=== PATIENT | female | born 1935 | race Caucasian/White ===

== ENCOUNTER → 2017-08-15 | Outpatient (CLI) | payer MEDICARE, BC ==
--- NOTE | 2017-08-15 09:09 | BD ---
EXAMINATION TYPE: MG DEXA axial skeleton. DATE OF EXAM: 08/15/2017 COMPARISON: 06.03.2015 CLINICAL HISTORY: 82 YR OLD FEMALE....ICD-10 CODE: Z78.0 POST MENOPAUSAL Height: 66.5 Weight: 196 FRAX RISK QUESTIONS: Alcohol (3 or more units per day): NO Family History (Parent hip fracture): NO FX Glucocorticoids (More than 3mos): NO (Ex: prednisone, prednisolone, methylprednisolone, dexamethasone, and hydrocortisone). History of Fracture in Adulthood: NO Secondary Osteoporosis: NO 1. Type 1 Diabetes: O 2. Hyperthyroidism: NO 3. Menopause before 45: NO 4. Malnutrition: NO 5. Chronic liver disease: NO Rheumatoid Arthritis: NO Current Tobacco Use: NO RISK FACTORS HISTORY OF: Family History of Osteoporosis: YES, ALL IMMEDIATE...NO FX HIPS Active: YES Diet low in dairy products/other sources of calcium: NO Postmenopausal woman: YES AT 49 YRS. Lost more than 2 inches in height since high school: YES Hyperparathyroidism: NO Adrenal Insufficiency: NO MEDICATIONS: Osteoporosis Medications: FOSAMAX IN PAST...STOPPED 3 YRS AGO Additional Medications: NO MEDS AT THIS POINT....NO SUPPLEMENTS, EXCEPT RETNOVITES FOR HER EYES Additional History: NOTHING TO NOTE EXAM MEASUREMENTS: Bone mineral densitometry was performed using the [employer] System. Bone mineral density as measured about the Lumbar spine is: ----- L1-L4(G/cm2): 1.343 T Score Values are as follows: ----- L1: 1.1 ----- L2: 2.6 ----- L3: 1.0 ----- L4: 0.8 ----- L1-L4: 1.4 Bone mineral density has: Increased 5.5% since study of: 06.03.2015 Bone mineral density about the R hip (g/cm2): 0.888 Bone mineral density about the L hip (g/cm2): 0.934 T Score values are as follows: -----R Neck: -1.4 -----L Neck: -1.2 -----R Total: -0.9 -----L Total: -0.6 Bone mineral density has: Decreased -2.1% since study of: 06.03.2015 FRAX: THERE IS A 12.6% CHANCE OF A MAJOR OSTEOPOROTIC FX AND A 3.1% FOR A HIP FX.....PROBABILITY O F FX IN 10 YRS TIME IMPRESSION: Osteopenia (T Score between -2.5 and -1 as noted by T score values persists in both hips. There holly ins slightly increased risk of fracture and the patient may be considered for treatment. Re-Screen 2-5 years. NOTE: T-SCORE=SD OF THE YOUNG ADULT MEAN.
--- NOTE | 2017-08-16 07:55 | MM ---
Reason for exam: screening (asymptomatic). Last mammogram was performed 1 year and 2 months ago. History: Patient is postmenopausal and is nulliparous. Physical Findings: A clinical breast exam by your physician is recommended on an annual basis and results should be correlated with mammographic findings. MG 3D Screening Mammo W/Cad Bilateral CC and MLO view(s) were taken. Prior study comparison: June 29, 2016, bilateral MG 3d screening mammo w/cad. June 03, 2015, bilateral MG screening mammo w CAD. The breast tissue is heterogeneously dense. This may lower the sensitivity of mammography. Stable benign calcifications. There is no discrete abnormality. No significant changes when compared with prior studies. ASSESSMENT: Benign, BI-RAD 2 RECOMMENDATION: Routine screening mammogram of both breasts in 1 year.
== END | disposition home or self-care (01) ==
LOC: RADMAMWWP 07:28
PROVIDERS: ATTEND Family Medicine
DX: Z12.31 Encounter for screening mammogram for malignant neoplasm of breast (principal); M85.851 Other specified disorders of bone density and structure, right thigh; M85.852 Other specified disorders of bone density and structure, left thigh; Z78.0 Asymptomatic menopausal state
CPT/HCPCS: 77063; 77067; 77080

== ENCOUNTER → 2019-03-28 | Outpatient (CLI) | payer MEDICARE, BC ==
--- NOTE | 2019-03-29 08:40 | MM ---
Reason for exam: screening (asymptomatic). Last mammogram was performed 1 year and 7 months ago. History: Patient is postmenopausal and is nulliparous. Physical Findings: A clinical breast exam by your physician is recommended on an annual basis and results should be correlated with mammographic findings. MG 3D Screening Mammo W/Cad Bilateral CC, MLO, and XCCL view(s) were taken. Prior study comparison: August 15, 2017, bilateral MG 3d screening mammo w/cad. June 29, 2016, bilateral MG 3d screening mammo w/cad. The breast tissue is heterogeneously dense. This may lower the sensitivity of mammography. Stable benign calcifications. There is no discrete abnormality. No significant changes when compared with prior studies. ASSESSMENT: Benign, BI-RAD 2 RECOMMENDATION: Routine screening mammogram of both breasts in 1 year.
== END | disposition home or self-care (01) ==
LOC: RADMAMWWP 07:32
PROVIDERS: ATTEND Family Medicine
DX: Z12.31 Encounter for screening mammogram for malignant neoplasm of breast (principal)
CPT/HCPCS: 77063; 77067

== ENCOUNTER 2020-12-08 09:55 | Observation (INO) | payer MEDICARE, BC ==
[2020-12-08] MEDS ORDERED: SODIUM CHLORIDE 0.9% 1,000 ML IV STA (10:18)
[2020-12-08 10:25] LABS: Basophils # (A) 0.1 k/uL (0-0.2); Basophils % (A) 1 %; Eosinophils # (A) 0.3 k/uL (0-0.7); Eosinophils % (A) 4 %; HCT 42.1 % (34.0-46.0); Lymphocytes # (A) 1.3 k/uL (1.0-4.8); Lymphocytes % (A) 18 %; MCHC 33.3 g/dL (31.0-37.0); MCV 96.1 fL (80.0-100.0); Monocytes # (A) 0.5 k/uL (0-1.0); Monocytes % (A) 7 %; Neutrophils # (A) 4.9 k/uL (1.3-7.7); Neutrophils % (A) 67 %; Platelet Count 160 k/uL (150-450); RBC 4.38 m/uL (3.80-5.40); RDW 13.8 % (11.5-15.5); WBC 7.3 k/uL (3.8-10.6)
--- NOTE | 2020-12-08 10:25 | ED ---
Arrhythmia/Palpitations HPI - General Chief Complaint: Arrhythmia/Palpitations Stated Complaint: Palpitations,Headache Time Seen by Provider: 12/08/20 09:55 Source: patient, EMS, RN notes reviewed Mode of arrival: EMS - History of Present Illness Initial Comments: This 85-year-old female history of aortic stenosis who presents with multiple complaints including headache which she believes is secondary to her degenerative neck disease also complains of palpitations with a chest pains started this morning. Currently she has no chest pain feels no palpitations MD Complaint: palpitations - Related Data Home Medications Medication Instructions Recorded Confirmed Acetaminophen Tab [Tylenol] 325 mg PO Q6H PRN 12/08/20 12/08/20 Aspirin EC [Ecotrin Low Dose] 81 mg PO DAILY 12/08/20 12/08/20 Meclizine [Antivert] 25 mg PO TID PRN 12/08/20 12/08/20 Multivit-Min/FA/Lycopen/Lutein 1 tab PO DAILY 12/08/20 12/08/20 [Centrum Silver Tablet] Prevagen 1 cap PO DAILY 12/08/20 12/08/20 Retinavites 2 1 tab PO BID 12/08/20 12/08/20 Slow Release Calcium/Vitamin D3 1 tab PO DAILY 12/08/20 12/08/20 1200mg/1000iu Vit C/E/Zn/Coppr/Lutein/Zeaxan 1 cap PO BID 12/08/20 12/08/20 [Preservision Areds 2 Softgel] Allergies Allergy/AdvReac Type Severity Reaction Status Date / Time diazepam [From Valium] Allergy Confusion Verified 12/08/20 11:00 Penicillins Allergy Rash/Hives Verified 12/08/20 11:00 Tetracyclines Allergy Rash/Hives Verified 12/08/20 11:00 Review of Systems ROS Statement: Those systems with pertinent positive or pertinent negative responses have been documented in the HPI. ROS Other: All systems not noted in ROS Statement are negative. Past Medical History Past Medical History: GERD/Reflux Additional Past Medical History / Comment(s): christina martinez stnosis History of Any Multi-Drug Resistant Organisms: None Reported Past Surgical History: No Surgical Hx Reported Past Psychological History: No Psychological Hx Reported Smoking Status: Former smoker Past Alcohol Use History: Daily Past Drug Use History: None Reported General Exam - General Exam Comments Initial Comments: This is a well-developed asthenic appearing female who is awake alert oriented 3 General appearance: alert, anxious Head exam: Present: atraumatic, normocephalic, normal inspection Eye exam: Present: normal appearance, PERRL, EOMI. Absent: scleral icterus, conjunctival injection, periorbital swelling ENT exam: Present: mucous membranes dry Neck exam: Present: normal inspection. Absent: tenderness, meningismus, lymphadenopathy Respiratory exam: Present: normal lung sounds bilaterally. Absent: respiratory distress, wheezes, rales, rhonchi, stridor, chest wall tenderness Cardiovascular Exam: Present: regular rate, normal rhythm, normal heart sounds. Absent: systolic murmur, diastolic murmur, rubs, gallop, clicks GI/Abdominal exam: Present: soft, normal bowel sounds. Absent: distended, tenderness, guarding, rebound, rigid Extremities exam: Present: normal inspection, full ROM, normal capillary refill. Absent: tenderness, pedal edema, joint swelling, calf tenderness Back exam: Present: normal inspection Neurological exam: Present: alert, oriented X3, CN II-XII intact Psychiatric exam: Present: normal affect, normal mood Skin exam: Present: warm, dry, intact, normal color. Absent: rash Course Vital Signs 12/08/20 09:58 Temperature 98.3 F Pulse Rate 61 Respiratory 18 Rate Blood Pressure 132/85 O2 Sat by Pulse 95 Oximetry EKG Findings - EKG Results: EKG: interpreted by ERMD (Sinus tachycardia PVCs rate 114 OK interval 192 QRS 88 QT/QTC 338/[address]-T wave configuration) Medical Decision Making - Medical Decision Making I did discuss findings with patient family and with Dr. vásquez patient did have elevated d-dimer CAT scan is pending. Evidence of mild CHF atypical chest pain and UTI - Lab Data Result diagrams: 12/08/20 10:16 12/08/20 10:16 Lab Results 12/08/20 12/08/20 12/08/20 Range/Units 10:16 10:16 10:16 WBC 7.3 (3.8-10.6) k/uL RBC 4.38 (3.80-5.40) m/uL Hgb 14.0 (11.4-16.0) gm/dL Hct 42.1 (34.0-46.0) % MCV 96.1 (80.0-100.0) fL MCH 32.0 (25.0-35.0) pg MCHC 33.3 (31.0-37.0) g/dL RDW 13.8 (11.5-15.5) % Plt Count 160 (150-450) k/uL MPV 9.0 Neutrophils % 67 % Lymphocytes % 18 % Monocytes % 7 % Eosinophils % 4 % Basophils % 1 % Neutrophils # 4.9 (1.3-7.7) k/uL Lymphocytes # 1.3 (1.0-4.8) k/uL Monocytes # 0.5 (0-1.0) k/uL Eosinophils # 0.3 (0-0.7) k/uL Basophils # 0.1 (0-0.2) k/uL PT (9.0-12.0) sec INR (<1.2) APTT (22.0-30.0) sec D-Dimer (<0.60) mg/L FEU Sodium 138 (137-145) mmol/L Potassium 4.3 (3.5-5.1) mmol/L Chloride 107 (98-107) mmol/L Carbon Dioxide 22 (22-30) mmol/L Anion Gap 9 mmol/L BUN 10 (7-17) mg/dL Creatinine 0.77 (0.52-1.04) mg/dL Est GFR (CKD-EPI)AfAm 80 (>60 ml/min/1.73 sqM) Est GFR (CKD-EPI)NonAf 70 (>60 ml/min/1.73 sqM) Glucose 129 H (74-99) mg/dL Calcium 9.0 (8.4-10.2) mg/dL Magnesium 2.0 (1.6-2.3) mg/dL Total Bilirubin 1.1 (0.2-1.3) mg/dL AST 24 (14-36) U/L ALT 11 (4-34) U/L Alkaline Phosphatase 92 (38-126) U/L Creatine Kinase 32 (30-135) U/L Troponin I <0.012 (0.000-0.034) ng/mL NT-Pro-B Natriuret Pep pg/mL Total Protein 7.0 (6.3-8.2) g/dL Albumin 4.0 (3.5-5.0) g/dL Lipase 23 (23-300) U/L Urine Color Urine Appearance (Clear) Urine pH (5.0-8.0) Ur Specific [place] (1.001-1.035) Urine Protein (Negative) Urine Glucose (UA) (Negative) Urine Ketones (Negative) Urine Blood (Negative) Urine Nitrite (Negative) Urine Bilirubin (Negative) Urine Urobilinogen (<2.0) mg/dL Ur Leukocyte Esterase (Negative) Urine RBC (0-5) /hpf Urine WBC (0-5) /hpf Ur Squamous Epith Cells (0-4) /hpf Urine Bacteria (None) /hpf Urine Mucus (None) /hpf 12/08/20 12/08/20 12/08/20 Range/Units 10:16 10:49 12:19 WBC (3.8-10.6) k/uL RBC (3.80-5.40) m/uL Hgb (11.4-16.0) gm/dL Hct (34.0-46.0) % MCV (80.0-100.0) fL MCH (25.0-35.0) pg MCHC (31.0-37.0) g/dL RDW (11.5-15.5) % Plt Count (150-450) k/uL MPV Neutrophils % % Lymphocytes % % Monocytes % % Eosinophils % % Basophils % % Neutrophils # (1.3-7.7) k/uL Lymphocytes # (1.0-4.8) k/uL Monocytes # (0-1.0) k/uL Eosinophils # (0-0.7) k/uL Basophils # (0-0.2) k/uL PT 10.7 (9.0-12.0) sec INR 1.0 (<1.2) APTT 20.9 L (22.0-30.0) sec D-Dimer 0.95 H (<0.60) mg/L FEU Sodium (137-145) mmol/L Potassium (3.5-5.1) mmol/L Chloride (98-107) mmol/L Carbon Dioxide (22-30) mmol/L Anion Gap mmol/L BUN (7-17) mg/dL Creatinine (0.52-1.04) mg/dL Est GFR (CKD-EPI)AfAm (>60 ml/min/1.73 sqM) Est GFR (CKD-EPI)NonAf (>60 ml/min/1.73 sqM) Glucose (74-99) mg/dL Calcium (8.4-10.2) mg/dL Magnesium (1.6-2.3) mg/dL Total Bilirubin (0.2-1.3) mg/dL AST (14-36) U/L ALT (4-34) U/L Alkaline Phosphatase (38-126) U/L Creatine Kinase (30-135) U/L Troponin I (0.000-0.034) ng/mL NT-Pro-B Natriuret Pep 947 pg/mL Total Protein (6.3-8.2) g/dL Albumin (3.5-5.0) g/dL Lipase (23-300) U/L Urine Color Light Yellow Urine Appearance Clear (Clear) Urine pH 5.5 (5.0-8.0) Ur Specific [place] 1.004 (1.001-1.035) Urine Protein Negative (Negative) Urine Glucose (UA) Negative (Negative) Urine Ketones 1+ H (Negative) Urine Blood Negative (Negative) Urine Nitrite Positive H (Negative) Urine Bilirubin Negative (Negative) Urine Urobilinogen <2.0 (<2.0) mg/dL Ur Leukocyte Esterase Large H (Negative) Urine RBC 1 (0-5) /hpf Urine WBC 60 H (0-5) /hpf Ur Squamous Epith Cells <1 (0-4) /hpf Urine Bacteria Many H (None) /hpf Urine Mucus Rare H (None) /hpf - Radiology Data Radiology results: report reviewed (Initial imaging reviewed increase markings noted CHF considered), image reviewed Disposition Clinical Impression: Atypical chest pain, CHF (congestive heart failure), Urinary tract infection, PVCs (premature ventricular contractions) Disposition: ADMITTED IP TO THIS [facility] Condition: Fair Referrals: Anuj Vigil MD [Primary Care Provider] - 1-2 days
[2020-12-08 10:33] LABS: Potassium 4.3 mmol/L (3.5-5.1); Total Bilirubin 1.1 mg/dL (0.2-1.3)
--- NOTE | 2020-12-08 11:02 | XR ---
EXAMINATION TYPE: XR chest 2V DATE OF EXAM: 12/08/2020 COMPARISON: Chest x-ray dated 04/08/2011 HISTORY: Chest pain TECHNIQUE: Frontal and lateral views of the chest are obtained. FINDINGS: Mitral annular calcification is suspected. Wedge compression deformity is noted near the t horacic lumbar junction, loss of height of greater than 75% is noted anteriorly, there may be some mi ld retropulsion. Interstitium and central vascularity are increased. Aorta is dense. Heart size withi n normal limits. No evident pneumothorax. No sizable effusion, difficult to exclude minimal blunting of the costophrenic angles, minimal fluid. IMPRESSION: Correlate for congestive heart failure.
[2020-12-08 11:17] LABS: Appearance,Urine Clear (Clear); Bacteria,Urine Many /hpf; Bilirubin,Urine Negative (Negative); Blood,Urine Negative (Negative); Color,Urine Light Yellow; Glucose,Urine (UA) Negative (Negative); Ketones,Urine 1+ (Negative); Leukocyte Esterase,Urine Large (Negative); Mucus,Urine Rare /hpf; Nitrite,Urine Positive (Negative); PH, Urine 5.5 (5.0-8.0); Protein,Urine Negative (Negative); RBC,Urine 1 /hpf (0-5); Specific Gravity,Urine 1.004 (1.001-1.035); Squamous Epithelial Cell,Urine <1 /hpf (0-4); Urobilinogen,Urine <2.0 mg/dL (<2.0); WBC,Urine 60 /hpf (0-5)
[2020-12-08 12:50] LABS: Prothrombin Time 10.7 sec (9.0-12.0)
[2020-12-08 12:55] LABS: D-Dimer 0.95 mg/L FEU (<0.60); Partial Thromboplastin Time 20.9 sec (22.0-30.0)
[2020-12-08] MEDS ORDERED: cefTRIAXone IN SWFI 1,000 MG/10 ML SYRINGE IVP STA (13:07)
[2020-12-08] MEDS ORDERED: ACETAMINOPHEN TAB 325 MG TAB PO PRN (14:31)
[2020-12-08] MEDS ORDERED: MECLIZINE 25 MG TAB PO PRN (14:31)
[2020-12-08] MEDS ORDERED: NITROGLYCERIN SL TABS 0.4 MG TAB SUBLINGUAL PRN (14:56)
[2020-12-08] MEDS: SODIUM CHLORIDE 0.9% 1,000 ML IV SCH (15:38)
--- NOTE | 2020-12-08 15:46 | CT ---
EXAMINATION TYPE: CT angio chest DATE OF EXAM: 12/08/2020 2:14 PM COMPARISON: Same day chest radiograph. Chest radiograph 04/08/2011. HISTORY: PE suspected, intermediate probability. Positive d-dimer. CT DLP: 315.8 mGycm Automated exposure control for dose reduction was used. CONTRAST: CTA scan of the thorax is performed with IV Contrast, patient injected with 67 mL of Isovue 300, pulm onary embolism protocol. . FINDINGS: LUNGS: Tracheobronchial tree is patent. No focal airspace opacity. There are small bilateral pleural effusions. There is interlobular septal thickening. No pneumothorax. MEDIASTINUM: There is satisfactory enhancement of the pulmonary artery and its branches, there is no CT evidence for pulmonary embolism. Dilatation of the main pulmonary tibial trunk. There are no great er than 1 cm hilar or mediastinal lymph nodes. No pericardial effusion is seen. Cardiac size normal . Prominence of the left atrium. Calcified coronary artery disease and mitral annular calcification. OTHER: Age-indeterminate vertebra plana compression deformity of what is likely T11. Heterogenous no dular appearance of the left thyroid. IMPRESSION: 1. No evidence of pulmonary embolism. 2. Small bilateral pleural effusions and pulmonary vascular congestion and findings may represent CH F. 3. Prominence of the left atrium and mitral annular calcifications. Recommend correlation with cardi ac echo. 4. Dilatation of the main pulmonary arterial trunk may represent pulmonary arterial hypertension. 5. Age-indeterminate vertebral plana compression deformity of T11. 6. Heterogenous enlarged left thyroid. Recommend nonemergent outpatient thyroid ultrasound follow-up as clinically indicated.
--- NOTE | 2020-12-08 18:44 | US ---
EXAMINATION TYPE: US venous doppler duplex LE BI DATE OF EXAM: 12/08/2020 4:23 PM COMPARISON: NONE CLINICAL HISTORY: Rule out DVT. SIDE PERFORMED: Bilateral TECHNIQUE: The lower extremity deep venous system is examined utilizing real time linear array sonog faisal with graded compression, doppler sonography and color-flow sonography. VESSELS IMAGED: Common Femoral Vein Deep Femoral Vein Greater Saphenous Vein * Femoral Vein Popliteal Vein Small Saphenous Vein * Proximal Calf Veins (* superficial vessels) Right Leg: no evidence of acute DVT as visualized Left Leg: no evidence of acute DVT as visualized IMPRESSION: No evidence of deep vein thrombosis in the right and left leg.
[2020-12-08] MEDS: HEPARIN SODIUM,PORCINE/PF 5,000 UNIT/0.5 ML SYRINGE SQ SCH (21:25)
[2020-12-08] MEDS: FAMOTIDINE 20 MG/2 ML VIAL IV SCH (21:25)
[2020-12-08] MEDS: FUROSEMIDE 10 MG/ML 4 ML VIAL IV SCH (21:39)
--- NOTE | 2020-12-08 22:52 | P.HPIM ---
History of Present Illness This is a pleasant 85 years old female with past medical history of GERD, aortic stenosis and vertigo. Presents emergency room because of feeling irregular heartbeat and headache as per ED team. When I asked the patient she states she came because of severe headache which is completely resolved now. Patient did not feel well but she didn't have any specific symptoms other than severe headache which is resolved as above. She denies chest pain or dyspnea. She has some discomfort in her belly, in the middle of her belly for the last 2 days but now is gone. she states that she has a normal bowel movement. She denies any urinary complaints. Patient states that she has not been drinking well for the last 2 days because she does not like water, visually she drinks a lot of coffee but because she could not feel well to her stomach she wasn't drinking much of coffee or water, because she thought her symptoms are due to GERD so she limited her amount of intake. No dizziness, no syncope/presyncope. No falling She denies weakness, numbness, no blurred vision or slurred speech Vitals are stable. Labs include an unremarkable CBC, BMP, liver enzymes. This is normal at 23. And is negative less than 0.012. Urinalysis is suspicious of infection D-dimer is elevated at 0.95. Chest x-ray: Correlate for CHF In the emergency room patient received ceftriaxone and 1 L of normal saline Review of Systems CONSTITUTIONAL: No fever, no malaise, no fatigue. HEENT: No recent visual problems or hearing problems. Denied any sore throat. CARDIOVASCULAR: No orthopnea, PND, no palpitations, no syncope. PULMONARY: No shortness of breath, no cough, no hemoptysis. GASTROINTESTINAL: No diarrhea, no nausea, no vomiting, no abdominal pain. Normoactive bowel sounds. NEUROLOGICAL: No headaches, no weakness, no numbness. HEMATOLOGICAL: Denies any bleeding or petechiae. GENITOURINARY: Denies any burning micturition, frequency, or urgency. MUSCULOSKELETAL/RHEUMATOLOGICAL: Denies any joint pain, swelling, or any muscle pain. ENDOCRINE: Denies any polyuria or polydipsia. Past Medical History Past Medical History: GERD/Reflux Additional Past Medical History / Comment(s): virtigo, arotic stnosis History of Any Multi-Drug Resistant Organisms: None Reported Past Surgical History: No Surgical Hx Reported Past Psychological History: No Psychological Hx Reported Smoking Status: Former smoker Past Alcohol Use History: Daily Past Drug Use History: None Reported - Past Family History Mother Family Medical History: No Reported History Father Family Medical History: AICD/Pacemaker Medications and Allergies Home Medications Medication Instructions Recorded Confirmed Type Acetaminophen Tab [Tylenol] 325 mg PO Q6H PRN 12/08/20 12/08/20 History Aspirin EC [Ecotrin Low Dose] 81 mg PO DAILY 12/08/20 12/08/20 History Meclizine [Antivert] 25 mg PO TID PRN 12/08/20 12/08/20 History Multivit-Min/FA/Lycopen/Lutein 1 tab PO DAILY 12/08/20 12/08/20 History [Centrum Silver Tablet] Prevagen 1 cap PO DAILY 12/08/20 12/08/20 History Retinavites 2 1 tab PO BID 12/08/20 12/08/20 History Slow Release Calcium/Vitamin D3 1 tab PO DAILY 12/08/20 12/08/20 History 1200mg/1000iu Vit C/E/Zn/Coppr/Lutein/Zeaxan 1 cap PO BID 12/08/20 12/08/20 History [Preservision Areds 2 Softgel] Allergies Allergy/AdvReac Type Severity Reaction Status Date / Time diazepam [From Valium] Allergy Confusion Verified 12/08/20 11:00 Penicillins Allergy Rash/Hives Verified 12/08/20 11:00 Tetracyclines Allergy Rash/Hives Verified 12/08/20 11:00 Physical Exam Vitals: Vital Signs Temp Pulse Resp BP Pulse Ox 12/08/20 09:58 98.3 F 61 18 132/85 95 Intake and Output 12/07/20 12/08/20 12/08/20 22:59 06:59 14:59 Other: Weight 80.739 kg GENERAL: The patient is alert and oriented x3, not in any acute distress. Well developed, well nourished. HEENT: Pupils are round and equally reacting to light. EOMI. No scleral icterus. No conjunctival pallor. Normocephalic, atraumatic. No pharyngeal erythema. No th yromegaly. CARDIOVASCULAR: S1 and S2 present. No murmurs, rubs, or gallops. PULMONARY: Chest is clear to auscultation, no wheezing or crackles. ABDOMEN: Soft, nontender, nondistended, normoactive bowel sounds. No palpable organomegaly. MUSCULOSKELETAL: No joint swelling or deformity. EXTREMITIES: No cyanosis, clubbing, or pedal edema. NEUROLOGICAL: Gross neurological examination did not reveal any focal deficits. SKIN: No rashes. No petechiae Results CBC & Chem 7: 12/08/20 10:16 12/08/20 10:16 Labs: Abnormal Lab Results - Last 24 Hours (Table) 12/08/20 12/08/20 12/08/20 Range/Units 10:16 10:49 12:19 APTT 20.9 L (22.0-30.0) sec D-Dimer 0.95 H (<0.60) mg/L FEU Glucose 129 H (74-99) mg/dL Urine Ketones 1+ H (Negative) Urine Nitrite Positive H (Negative) Ur Leukocyte Esterase Large H (Negative) Urine WBC 60 H (0-5) /hpf Urine Bacteria Many H (None) /hpf Urine Mucus Rare H (None) /hpf Assessment and Plan Assessment: -Possible acute CHF, check echocardiogram, consult cardiology team. Continue with fluid restriction for now -Possible urinary tract infection, however patient denies any urinary symptoms. Follow-up urine culture -Elevated d-dimer, CTA of the chest was ordered follow-up the results. Also will order Doppler of the lower extremities -History of aortic stenosis -History of vertigo -History of GERD Plan: This is a pleasant 85 years old female who presents with chest pain, possible CHF and possible UTI. follow-up urine culture. Check echocardiogram and Doppler of the lower extremity. Consult cardiology service Follow-up The CTA of the chest . Also we will order the ultrasound of the legs Labs and medication were reviewed.. Continue same treatment. Continue with symptomatic treatment. Resume home medication. Monitor lytes and vitals. DVT and GI prophylaxis. Further recommendations depends on the clinical course of the patient DVT prophylaxis: Subcutaneous heparin GI Prophylaxis: Pepcid PT/OT: Pending Prognosis is guarded Dr. Vigil will resume the care of the patient tomorrow
[2020-12-09] MEDS: ASPIRIN 81 MG PO SCH (08:54)
[2020-12-09] MEDS: FUROSEMIDE 10 MG/ML 4 ML VIAL IV SCH (08:54)
[2020-12-09] MEDS: FAMOTIDINE 20 MG/2 ML VIAL IV SCH (08:54)
[2020-12-09] MEDS: HEPARIN SODIUM,PORCINE/PF 5,000 UNIT/0.5 ML SYRINGE SQ SCH ×2 (08:55→21:56)
[2020-12-09] MEDS ORDERED: ASPIRIN 325 MG TAB PO SCH (09:00)
[2020-12-09] MEDS ORDERED: ASPIRIN 81 MG PO SCH (09:00)
[2020-12-09] MEDS: METOPROLOL SUCCINATE (ER) 25 MG TAB.ER.24H PO SCH (10:43)
[2020-12-09 10:51] LABS: Chol/HDL Ratio 2.84; LDL Cholesterol,Calculated 91.8 mg/dL (0.0-131.0); VLDL Calculation 15.2 mg/dL (5.00-40.00)
--- NOTE | 2020-12-09 11:28 | P.CRDCN ---
History of Present Illness History of present illness: HISTORY OF PRESENTING ILLNESS This is a pleasant 85-year-old female past medical history significant for GERD, vertigo, aortic stenosis and daily alcohol use. She follows in the ffice with Dr. Graves. We have been asked to see in consultation for heart failure. Who presented to the hospital yesterday after a 2 day history of feeling tired, abdominal fullness, frequent passing of gas and poor appetite. Overall she just states she did not feel good. She has no specific complaints of chest pain or shortness of breath. She is not dizzy and has no palpitations. She is seen and examined resting comfortably in no acute distress. She continues to feel abdominal fullness. She states the last time she saw Dr. Graves in the office was last year in April where she had an echocardiogram performed revealing severe aortic stenosis. Since that time she has been extremely anxious about the idea of having to have surgical intervention. She has not been back to the office since. On admission she was initiated on IV diuretics secondary to chest x-ray showing heart failure. She has been up urinating and has put out a total of 2.7 L of urine since admission. DIAGNOSTICS EKG reveals sinus mechanism with PVCs. Telemetry tracings indicate sinus mechanism. Chest xray indicates evidence of heart failure. CTA is negative for PE with evidence of heart failure. Lower extremity Doppler negative for DVT bilaterally. Laboratory reviewed, CBC unremarkable, d-dimer 0.95, cardiac enzymes negative 3, and T proBNP 947, sodium 138, potassium 4.3, creatinine 0.77 and magnesium 2.0. Current cardiac medications include aspirin 81 mg daily. REVIEW OF SYSTEMS At the time of my exam: CONSTITUTIONAL: Denies fever or chills. CARDIOVASCULAR: Denies chest pain, shortness of breath, orthopnea, PND or palpitations. RESPIRATORY: Denies cough. GASTROINTESTINAL: Denies abdominal pain, diarrhea, constipation, nausea or vomiting. MUSCULOSKELETAL: Denies myalgias. NEUROLOGIC: Denies numbness, tingling, headacbe or weakness. ENDOCRINE: Denies fatigue, weight change, polydipsia or polyurina. GENITOURINARY: Denies burning, hematuria or urgency with micturation. HEMATOLOGIC: Denies history of anemia or bleeding. PHYSICAL EXAMINATION Blood pressure 133/78 heart rate 109 afebrile and maintaining oxygen saturation on room air. CONSTITUTIONAL: No apparent distress. HEENT: Head is normocephalic. Pupils are equal, round. Sclerae anicteric. Mucous membranes of the mouth are moist. No JVD. No carotid bruit. CHEST EXAMINATION: Lungs are clear to auscultation. No chest wall tenderness is noted on palpation or with deep breathing. HEART EXAMINATION: Regular rate and rhythm. S1, S2 heard. Systolic ejection murmur at the base, no gallops or rub. ABDOMEN: Soft, nontender. Positive bowel sounds. EXTREMITIES: 2+ peripheral pulses, no lower extremity edema and no calf tenderness. NEUROLOGIC EXAMINATION: Patient is awake, alert and oriented x3. ASSESSMENT Acute diastolic heart failure secondary to aortic stenosis Aortic stenosis, severe PLAN Decrease aspirin to 81 mg daily. Echocardiogram has been ordered and will be reviewed. Continue diuresis for another 24 hours. Document accurate intake and output along with daily weights. Follow renal function and electrolytes in the morning. Further recommendations to follow based on clinical course. Thank you kindly for this consultation. Nurse Practitioner note has been reviewed, I agree with a documented findings and plan of care. Patient was seen and examined. Past Medical History Past Medical History: GERD/Reflux Additional Past Medical History / Comment(s): virtigo, arotic stnosis History of Any Multi-Drug Resistant Organisms: None Reported Past Surgical History: No Surgical Hx Reported Past Anesthesia/Blood Transfusion Reactions: No Reported Reaction Past Psychological History: No Psychological Hx Reported Smoking Status: Former smoker Past Alcohol Use History: Daily Past Drug Use History: None Reported - Past Family History Mother Family Medical History: No Reported History Father Family Medical History: AICD/Pacemaker Medications and Allergies Home Medications Medication Instructions Recorded Confirmed Type Acetaminophen Tab [Tylenol] 325 mg PO Q6H PRN 12/08/20 12/08/20 History Aspirin EC [Ecotrin Low Dose] 81 mg PO DAILY 12/08/20 12/08/20 History Meclizine [Antivert] 25 mg PO TID PRN 12/08/20 12/08/20 History Multivit-Min/FA/Lycopen/Lutein 1 tab PO DAILY 12/08/20 12/08/20 History [Centrum Silver Tablet] Prevagen 1 cap PO DAILY 12/08/20 12/08/20 History Retinavites 2 1 tab PO BID 12/08/20 12/08/20 History Slow Release Calcium/Vitamin D3 1 tab PO DAILY 12/08/20 12/08/20 History 1200mg/1000iu Vit C/E/Zn/Coppr/Lutein/Zeaxan 1 cap PO BID 12/08/20 12/08/20 History [Preservision Areds 2 Softgel] Allergies Allergy/AdvReac Type Severity Reaction Status Date / Time diazepam [From Valium] Allergy Confusion Verified 12/08/20 11:00 Penicillins Allergy Rash/Hives Verified 12/08/20 11:00 Tetracyclines Allergy Rash/Hives Verified 12/08/20 11:00 Physical Exam Vitals: Vital Signs Temp Pulse Pulse Resp BP BP Pulse Ox 12/09/20 07:44 18 12/09/20 07:00 97.7 F 109 H 20 133/78 97 12/09/20 01:41 98.1 F 98 18 98/61 92 L 12/08/20 20:00 98.1 F 99 16 112/74 98 12/08/20 19:23 105 H 18 115/81 96 12/08/20 15:30 105 H 12/08/20 15:05 124 H 18 144/93 95 12/08/20 09:58 98.3 F 61 18 132/85 95 Intake and Output 12/08/20 12/09/20 12/09/20 22:59 06:59 14:59 Output Total 800 1400 Balance -800 -1400 Output: Urine 800 1400 Other: Voiding Method Toilet Toilet # Voids 1 Weight 80.739 kg Results 12/08/20 10:16 12/08/20 10:16 Cardiac Enzymes 12/08/20 12/08/20 12/08/20 Range/Units 10:16 10:16 15:41 AST 24 (14-36) U/L Troponin I <0.012 <0.012 (0.000-0.034) ng/mL 12/08/20 Range/Units 19:01 AST (14-36) U/L Troponin I <0.012 (0.000-0.034) ng/mL Coagulation 12/08/20 Range/Units 12:19 PT 10.7 (9.0-12.0) sec APTT 20.9 L (22.0-30.0) sec CBC 12/08/20 Range/Units 10:16 WBC 7.3 (3.8-10.6) k/uL RBC 4.38 (3.80-5.40) m/uL Hgb 14.0 (11.4-16.0) gm/dL Hct 42.1 (34.0-46.0) % Plt Count 160 (150-450) k/uL Comprehensive Metabolic Panel 12/08/20 Range/Units 10:16 Sodium 138 (137-145) mmol/L Potassium 4.3 (3.5-5.1) mmol/L Chloride 107 (98-107) mmol/L Carbon Dioxide 22 (22-30) mmol/L BUN 10 (7-17) mg/dL Creatinine 0.77 (0.52-1.04) mg/dL Glucose 129 H (74-99) mg/dL Calcium 9.0 (8.4-10.2) mg/dL AST 24 (14-36) U/L ALT 11 (4-34) U/L Alkaline Phosphatase 92 (38-126) U/L Total Protein 7.0 (6.3-8.2) g/dL Albumin 4.0 (3.5-5.0) g/dL Current Medications Generic Name Dose Route Start Last Admin Trade Name Freq PRN Reason Stop Dose Admin Acetaminophen 325 mg 12/08/20 14:31 Acetaminophen Tab 325 Mg Tab PO Q6H PRN Headache Aspirin 81 mg 12/09/20 09:00 Aspirin 325 Mg Tab PO DAILY MANNY Famotidine 20 mg 12/08/20 21:00 12/08/20 21:25 Famotidine 20 Mg/2 Ml Vial IV 20 mg Q12HR MANNY Administration Furosemide 40 mg 12/08/20 21:45 12/08/20 21:39 Furosemide 10 Mg/Ml 4 Ml Vial IV 12/09/20 09:01 40 mg Q12HR MANNY Administration Heparin Sodium (Porcine) 5,000 unit 12/08/20 21:00 12/08/20 21:25 Heparin Sodium,Porcine/Pf 5,000 Unit/0.5 Ml Syringe SQ 5,000 unit Q12HR MANNY Administration Sodium Chloride 1,000 mls @ 20 mls/hr 12/08/20 15:00 12/08/20 15:38 Saline 0.9% IV 20 mls/hr .Q24H MANNY Administration Meclizine HCl 25 mg 12/08/20 14:31 Meclizine 25 Mg Tab PO TID PRN Vertigo Nitroglycerin 0.4 mg 12/08/20 14:56 Nitroglycerin Sl Tabs 0.4 Mg Tab SUBLINGUAL Q5M PRN Chest Pain Intake and Output 12/08/20 12/09/20 12/09/20 22:59 06:59 14:59 Output Total 800 1400 Balance -800 -1400 Output: Urine 800 1400 Other: Voiding Method Toilet Toilet # Voids 1 Weight 80.739 kg 12/08/20 10:16 12/08/20 10:16
--- NOTE | 2020-12-09 13:00 | ECHOF ---
Referral Reason:Rule out heart disease MEASUREMENTS -------- HEIGHT: 172.7 cm WEIGHT: 80.7 kg BP: 112/74 LALs A2C: 7.4 cm LAAs A2C: 32.4 cm LAESV A-L A2C: 120 ml LAESV MOD A2C: 116 ml FINDINGS -------- This was a technically difficult study with suboptimal views. The left ventricular size is normal. Overall left ventricular systolic function is normal with, an EF between 55 - 60 %. The RV was not well visualized. The left atrium was not well visualized. The left atrium is moderately dilated. The right atrium was not well visualized. 5.0mg of Lumason was utilized for enhancement of images The aortic valve was not well visualized. Severe mitral annular calcification present. [id number] mitral regurgitation is present. The tricuspid valve was not well visualized. The pulmonic valve was not well visualized. IVC Not well visulized. There is no pericardial effusion. CONCLUSIONS -------- 1. The left ventricular size is normal. 2. Overall left ventricular systolic function is normal with, an EF between 55 - 60 %. 3. The left atrium is moderately dilated. 4. Severe mitral annular calcification present. 5. Lskaqagj-[id number] mitral regurgitation is present. DIRECTOR CENTER: Kelley Cutler RDCS
[2020-12-09] MEDS: SODIUM CHLORIDE 0.9% 1,000 ML IV SCH (19:02)
[2020-12-09] MEDS: FAMOTIDINE 20 MG TAB PO SCH (21:57)
[2020-12-10 07:32] VITALS: BP 139/75; PULSE 83; RESP 18; TEMP 97.7
[2020-12-10] MEDS: METOPROLOL SUCCINATE (ER) 25 MG TAB.ER.24H PO SCH (08:51)
[2020-12-10] MEDS: FAMOTIDINE 20 MG TAB PO SCH (08:51)
[2020-12-10] MEDS: HEPARIN SODIUM,PORCINE/PF 5,000 UNIT/0.5 ML SYRINGE SQ SCH (08:51)
[2020-12-10] MEDS: ASPIRIN 81 MG PO SCH (08:51)
[2020-12-10] MEDS ORDERED: NITROFURANTOIN MONOHYD/M-CRYST 100 MG CAP PO SCH (10:00)
[2020-12-10 10:57] LABS: African American GFR (CKD) 62 (>60 ml/min/1.73 sqM); Anion Gap 11 mmol/L; Blood Urea Nitrogen 15 mg/dL (7-17); Calcium 9.9 mg/dL (8.4-10.2); Carbon Dioxide 29 mmol/L (22-30); Chloride 99 mmol/L (98-107); Glucose 137 mg/dL (74-99); Non-African American GFR(CKD) 53 (>60 ml/min/1.73 sqM); Potassium 4.2 mmol/L (3.5-5.1); Sodium 139 mmol/L (137-145)
--- NOTE | 2020-12-10 12:25 | P.PN ---
Subjective HISTORY OF PRESENTING ILLNESS This is a pleasant 85-year-old female past medical history significant for GERD, vertigo, aortic stenosis and daily alcohol use. She follows in the office with Dr. Graves. We have been asked to see in consultation for heart failure. Who presented to the hospital yesterday after a 2 day history of feeling tired, abdominal fullness, frequent passing of gas and poor appetite. Overall she just states she did not feel good. She has no specific complaints of chest pain or shortness of breath. She is not dizzy and has no palpitations. She is seen and examined resting comfortably in no acute distress. She continues to feel abdominal fullness. She states the last time she saw Dr. Graves in the office was last year in April where she had an echocardiogram performed revealing severe aortic stenosis. Since that time she has been extremely anxious about the idea of having to have surgical intervention. She has not been back to the office since. On admission she was initiated on IV diuretics secondary to chest x-ray showing heart failure. She has been up urinating and has put out a total of 2.7 L of urine since admission. 12/10/2020 Patient seen and examined sitting up in bed in no acute distress. She denies symptoms of chest pain, shortness of breath, dizziness or palpitations. Blood p ressure 139/75 heart rate 83 afebrile maintaining oxygen saturation on room air. Laboratory data reviewed, sodium 139, potassium 4.2, creatinine 0.96. 24-hour urine output was 1925 mls. PHYSICAL EXAMINATION CONSTITUTIONAL: No apparent distress. HEENT: Head is normocephalic. Pupils are equal, round. Sclerae anicteric. Mucous membranes of the mouth are moist. No JVD. No carotid bruit. CHEST EXAMINATION: Lungs are clear to auscultation. No chest wall tenderness is noted on palpation or with deep breathing. HEART EXAMINATION: Regular rate and rhythm. S1, S2 heard. Systolic ejection murmur at the base, no gallops or rub. EXTREMITIES: 2+ peripheral pulses, no lower extremity edema and no calf tenderness. ASSESSMENT Acute diastolic heart failure secondary to aortic stenosis Aortic stenosis, severe PLAN Stable for discharge from a cardiac perspective. Follow-up in the office with Dr. Graves in one to 2 weeks for further outpatient management of aortic stenosis. Nurse Practitioner note has been reviewed, I agree with a documented findings and plan of care. Patient was seen and examined. Objective - Vital Signs Vital signs: Vital Signs Temp 97.7 F 12/10/20 07:00 Pulse 83 12/10/20 07:00 Resp 18 12/10/20 07:00 BP 139/75 12/10/20 07:00 Pulse Ox 95 12/10/20 07:00 Intake & Output 12/09/20 12/10/20 12/10/20 18:59 06:59 18:59 Intake Total 720 180 Output Total 1325 600 Balance -605 -420 Intake: Oral 720 180 Output: Urine 1325 600 Other: Voiding Method Toilet Toilet Toilet # Voids 1 3 # Bowel Movements 1 - Labs CBC & Chem 7: 12/08/20 10:16 12/10/20 09:48 Labs: Abnormal Lab Results - Last 24 Hours (Table) 12/10/20 Range/Units 09:48 Glucose 137 H (74-99) mg/dL Microbiology - Last 24 Hours (Table) 12/08/20 10:49 Urine Culture - Preliminary Urine,Voided Gram Neg Bacilli
--- NOTE | 2020-12-14 22:13 | P.PN ---
Subjective Progress Note Date: 12/09/20 Principal diagnosis: Chest pressure. This is a continue proximal 89-year-old white female with known history of CAD and arrhythmia who had myocardial infarction ruled out. Cardiology is now been counseled that. The patient seems stable. No overt syncopal or voiding difficulties Objective - Vital Signs Vital signs: Vital Signs Temp 97.7 F 12/10/20 07:00 Pulse 83 12/10/20 07:00 Resp 18 12/10/20 07:00 BP 139/75 12/10/20 07:00 Pulse Ox 95 12/10/20 07:00 - Constitutional General appearance: Present: average body habitus - EENT Eyes: Present: abnormal pupil - Respiratory Respiratory: bilateral: CTA - Cardiovascular Rhythm: regular Heart sounds: normal: S1, S2 Abnormal Heart Sounds: Absent: S3 Gallop - Gastrointestinal General gastrointestinal: Present: soft. Absent: tenderness - Integumentary Integumentary: Absent: calor, cyanotic - Labs CBC & Chem 7: 12/08/20 10:16 12/10/20 09:48 Assessment and Plan (1) Atypical chest pain Status: Acute Code(s): R07.89 - OTHER CHEST PAIN SNOMED Code(s): 854325368 (2) CHF (congestive heart failure) Status: Acute Code(s): I50.9 - HEART FAILURE, UNSPECIFIED SNOMED Code(s): 64624800 (3) PVCs (premature ventricular contractions) Status: Acute Code(s): I49.3 - VENTRICULAR PREMATURE DEPOLARIZATION SNOMED Code(s): 33842306 Plan: Continue to follow. Await cardiology input. Anticipate discharge in next 24-48 hours.
--- NOTE | 2020-12-14 22:14 | P.DS ---
Providers Date of admission: 12/08/20 15:04 Attending physician: Anuj Vigil Consults: 12/08/20 21:31 Consult Physician Routine Consulting Provider: Aocsta Ledbetter Consult Reason/Comments: chf Do you want consulting provider notified?: Yes Primary care physician: Anuj Vigil - Discharge Diagnosis(es) (1) Atypical chest pain Status: Acute (2) CHF (congestive heart failure) Status: Acute (3) PVCs (premature ventricular contractions) Status: Acute Hospital Course: This is a discharge summary on an 85-year-old white female centimeter for atypical type chest pain. Myocardial infarction was ruled out but given her history, appropriate cardiac testing was done prior to discharge. No significant overt pressure on discharge was stated. She is tolerating diet without voiding difficulties. When cleared by cardiology she will be discharged to follow-up with me in about a week. Patient Condition at Discharge: Fair Plan - Discharge Summary New Discharge Prescriptions: New Nitrofurantoin Monohyd/M-Cryst [Macrobid] 100 mg PO BID #10 cap Metoprolol Succinate (ER) [Toprol XL] 25 mg PO DAILY #30 tab.er.24h Continue Vit C/E/Zn/Coppr/Lutein/Zeaxan [Preservision Areds 2 Softgel] 1 cap PO BID Aspirin EC [Ecotrin Low Dose] 81 mg PO DAILY Multivit-Min/FA/Lycopen/Lutein [Centrum Silver Tablet] 1 tab PO DAILY Meclizine [Antivert] 25 mg PO TID PRN PRN Reason: Vertigo Retinavites 2 1 tab PO BID Prevagen 1 cap PO DAILY Acetaminophen Tab [Tylenol] 325 mg PO Q6H PRN PRN Reason: Headache Slow Release Calcium/Vitamin D3 1200mg/1000iu 1 tab PO DAILY Discharge Medication List Acetaminophen Tab [Tylenol] 325 mg PO Q6H PRN 12/08/20 [History] Aspirin EC [Ecotrin Low Dose] 81 mg PO DAILY 12/08/20 [History] Meclizine [Antivert] 25 mg PO TID PRN 12/08/20 [History] Multivit-Min/FA/Lycopen/Lutein [Centrum Silver Tablet] 1 tab PO DAILY 12/08/20 [History] Prevagen 1 cap PO DAILY 12/08/20 [History] Retinavites 2 1 tab PO BID 12/08/20 [History] Slow Release Calcium/Vitamin D3 1200mg/1000iu 1 tab PO DAILY 12/08/20 [History] Vit C/E/Zn/Coppr/Lutein/Zeaxan [Preservision Areds 2 Softgel] 1 cap PO BID 12/08/20 [History] Metoprolol Succinate (ER) [Toprol XL] 25 mg PO DAILY #30 tab.er.24h 12/10/20 [Rx] Nitrofurantoin Monohyd/M-Cryst [Macrobid] 100 mg PO BID #10 cap 12/10/20 [Rx] Follow up Appointment(s)/Referral(s): Anuj Vigil MD [Primary Care Provider] - 1-2 days Bart Graves MD [STAFF PHYSICIAN] - 12/29/20 10:45 am (Appointment made at the main office ) Patient Instructions/Handouts: Heart Failure (ER) Discharge Disposition: HOME SELF-CARE
== END 2020-12-10 12:02 | disposition home or self-care (01) ==
LOC: EC 09:55 → 6NMEDSUR 15:04
PROVIDERS: ADMIT Family Medicine; ATTEND Family Medicine
DX: R07.89 Other chest pain (principal); I50.31 Acute diastolic (congestive) heart failure; I35.0 Nonrheumatic aortic (valve) stenosis; I49.3 Ventricular premature depolarization; N39.0 Urinary tract infection, site not specified; I25.10 Atherosclerotic heart disease of native coronary artery without angina pectoris; K21.9 Gastro-esophageal reflux disease without esophagitis; R79.89 Other specified abnormal findings of blood chemistry; R42 Dizziness and giddiness; R51.9 Headache, unspecified; Z72.89 Other problems related to lifestyle; Z20.822 Contact with and (suspected) exposure to COVID-19; Z79.82 Long term (current) use of aspirin; Z79.899 Other long term (current) drug therapy; Z88.0 Allergy status to penicillin; Z88.1 Allergy status to other antibiotic agents; Z88.8 Allergy status to other drugs, medicaments and biological substances; Z87.891 Personal history of nicotine dependence; Z82.49 Family history of ischemic heart disease and other diseases of the circulatory system
CPT/HCPCS: 96376; 96372 ×3; 96375; 93005 ×2; 96361; 96374; 99285; 36415; 85379; 83880; 80061; 80053; 80048; 82550; 83690; 83735; 84484; 85025; 85610; 85730; 81001; 87086; 87077; 87186; 87635; 71046; 93970; 71275; G0378 ×3; C8929; J1940 ×2; J0696; Q9950; Q9967; J1644 ×3; 93306

== ENCOUNTER 2021-01-14 07:21 | Day surgery (SDC) | payer MEDICARE, BC ==
[2021-01-08 15:28] VITALS: BMI 25.3
[~2021-01-14 07:21] MED LIST: ALPRAZolam 0.25 MG TAB PO PRN; ALPRAZolam 0.5 MG TAB PO PRN; ASPIRIN 325 MG TAB PO ONE; ATORVASTATIN 80 MG TAB PO ONE; HEPARIN SODIUM,PORCINE 10,000 UNIT in SODIUM CHLORIDE 0.9% 1,000 ML IRRIGATION PRN; HEPARIN SODIUM,PORCINE 2,500 UNIT in SODIUM CHLORIDE 0.9% 250 ML IRRIGATION PRN; NITROGLYCERIN SL TABS 0.4 MG TAB SUBLINGUAL PRN; SODIUM CHLORIDE 0.9% 1,000 ML in EMPTY BAG 1 BAG IV ONE
[2021-01-14 07:50] VITALS: TEMP 97.5
[2021-01-14] MEDS ORDERED: SODIUM CHLORIDE 0.9% 1,000 ML IV ONE (07:50)
[2021-01-14] MEDS ORDERED: fentaNYL (PF) 50 MCG/ML 2 ML AMP ONE (08:44)
[2021-01-14] MEDS: BENZOCAINE SPRAY 1 CAN MUCOUS MEM ONE ×2 (08:55→08:58)
[2021-01-14] MEDS ORDERED: fentaNYL (PF) 50 MCG/ML 2 ML AMP IVP ONE (08:58)
[2021-01-14] MEDS ORDERED: MIDAZOLAM 2 MG/2 ML VIAL IVP ONE (08:58)
[2021-01-14 09:07] VITALS: RESP 16
[2021-01-14 09:33] LABS: Potassium 4.4 mmol/L (3.5-5.1)
[2021-01-14] MEDS ORDERED: LIDOCAINE 1% INJ 10MG/ML (20 ML MDV) SQ ONE (09:33)
[2021-01-14] MEDS ORDERED: IOPAMIDOL-370 125ML BTL INJ ONE (09:46)
[2021-01-14] MEDS ORDERED: RX INFO: IV CONTRAST WAS GIVEN 1 EACH MISC MISCELLANE PRN (10:05)
[2021-01-14] MEDS ORDERED: SODIUM CHLORIDE 0.9% 1,000 ML IV SCH (10:15)
--- NOTE | 2021-01-14 10:30 | ECHOT ---
TRANSESOPHAGEAL ECHOCARDIOGRAM PROCEDURE PERFORMED: Transesophageal echo. INDICATION: Aortic stenosis. PROCEDURE NOTE: After obtaining informed consent, transesophageal echocardiogram was performed in left lateral position using an Omni plane probe. Local and IV sedation were obtained using Xylocaine spray, 1 mg of Versed and 50 mcg of fentanyl. The patient tolerated the procedure well without any obvious immediate complications. The patient's color Doppler and 2D evaluation was performed. Agitated saline contrast study was done. FINDINGS: 1. Aortic valve: The aortic valve is a 3-leaflet valve that is heavily calcified and shows severe restriction in leaflet mobility with trace aortic regurgitation. The valve area by planimetry is around 0.5 squared cm. I aortic root measures within normal limits. Aorta shows moderate atherosclerotic changes. 2. Mitral valve shows mitral annular calcification and calcified and thickened mitral leaflet. There is partial flail of the anterior mitral leaflet with severe posteriorly directed mitral regurgitation. 3. Left atrium appears enlarged. 4. Right atrium and right ventricle seen within normal limits. 5. Left ventricle has normal size and systolic function. 6. Interatrial septum: There is no evidence of hyqa-dd-dnpow shunt by color-flow Doppler or ehcmo-ql-wgsy shunt by agitated saline contrast study. CONCLUSIONS: 1. Severe aortic stenosis. 2. Severe posteriorly directed mitral regurgitation secondary to partial flail of the anterior leaflet. 3. Normal LV systolic function. MMODL / IJN: [id number] /
--- NOTE | 2021-01-14 10:35 | CONS ---
CONSULTATION PROCEDURE PERFORMED: Cardiac catheterization. INDICATION: Aortic stenosis. INTERVAL HISTORY: This is a 85-year-old lady with history of permanent atrial fibrillation, aortic stenosis and recent episode of diastolic heart failure. She was advised to undergo cardiac catheterization to rule out coronary artery disease prior to aortic valve replacement. The patient has been explained of risks, benefits and alternatives and understood and accepted. PROCEDURE NOTE: After obtaining informed consent, left heart catheterization and coronary angiogram were performed via the right femoral artery using standard Madina catheters. The patient tolerated the procedure well without any obvious immediate complications. A femoral angiogram was performed and Angio-Seal was deployed for hemostasis. Patient received moderate conscious sedation and total sedation time was 15 minutes. FINDINGS: HEMODYNAMICS: Central aortic pressure is 120/70 mm. LEFT VENTRICULOGRAM: Left ventriculogram was not performed. ANGIOGRAPHIC DATA: The left main coronary artery is a normal-sized vessel and is free of stenosis. Divides into left anterior descending coronary artery and circumflex coronary artery. LAD and its branches are free of significant stenosis. Circumflex coronary artery is free of significant disease. Right coronary artery is a small nondominant vessel and is free of significant stenosis. CONCLUSIONS: Normal coronary arteries. PLAN: I will consult a cardiothoracic surgeon to get their opinion about mitral and aortic valve surgery versus TAVR with watchful waiting on the mitral regurgitation that the patient has. The patient has severe mitral regurgitation secondary to partial flail of the anterior mitral leaflet and also has severe aortic stenosis. I might consider sending the patient to a tertiary care center once I get an opinion from the cardiothoracic surgeon locally. MMODL / IJN: [id number] /
--- NOTE | 2021-01-14 10:38 | LTR ---
DATE OF SERVICE: 01/14/2021 RE: Luly Blanca I performed BUD and cardiac catheterization on Luly Blanca. She is an 85-year-old lady with history of severe aortic stenosis that underwent a transesophageal echo that showed severe aortic stenosis involving a heavily calcified aortic valve and severe posteriorly directed mitral regurgitation secondary to a flail mitral leaflet. The patient requires correction of both the aortic stenosis and mitral valve. Her coronaries are normal. We might either do a TAVR and see if her symptoms improve and leave the mitral regurgitation alone or send her for surgical replacement of the mitral and aortic valve. I will get an opinion from the surgeon and here and if necessary will send her for an opinion to a tertiary care center. Thank you for allowing us to participate in the care of this pleasant lady. Sincerely, MD MRACOS Sosa / ESTEVAN: [id number] /
[2021-01-14] MEDS ORDERED: SODIUM CHLORIDE 0.9% 500 ML 500 ML IV ONE (13:00)
[2021-01-14 14:33] VITALS: PULSE 92
[2021-01-14 14:34] VITALS: BP 124/76
== END 2021-01-14 14:50 | disposition home or self-care (01) ==
LOC: CATHCVL 07:21
PROVIDERS: ATTEND Internal Medicine Cardiovascular Disease
DX: I08.0 Rheumatic disorders of both mitral and aortic valves (principal); Z82.49 Family history of ischemic heart disease and other diseases of the circulatory system; Z79.82 Long term (current) use of aspirin; Z79.899 Other long term (current) drug therapy; Z88.1 Allergy status to other antibiotic agents; Z88.0 Allergy status to penicillin; Z87.891 Personal history of nicotine dependence
CPT/HCPCS: 93312; 93320; 93325; 93454; 80048; C1769 ×2; C1760; C1894; J2250; J2001; J3010; Q9967

== ENCOUNTER 2021-11-05 17:03 | Observation (INO) | payer BC, MEDICARE ==
[2021-11-05 17:59] LABS: Basophils # (A) 0.1 k/uL (0-0.2); Basophils % (A) 1 %; Eosinophils # (A) 0.3 k/uL (0-0.7); Eosinophils % (A) 3 %; HCT 44.7 % (34.0-46.0); HGB 13.9 gm/dL (11.4-16.0); Lymphocytes % (A) 22 %; MCH 31.5 pg (25.0-35.0); MCHC 31.2 g/dL (31.0-37.0); MCV 100.9 fL (80.0-100.0); Macrocytosis Slight; Mean Platelet Volume 8.6; Monocytes # (A) 0.7 k/uL (0-1.0); Monocytes % (A) 8 %; Neutrophils # (A) 5.7 k/uL (1.3-7.7); Neutrophils % (A) 64 %; Platelet Count 190 k/uL (150-450); RBC 4.43 m/uL (3.80-5.40); RDW 14.3 % (11.5-15.5); WBC 8.9 k/uL (3.8-10.6)
[2021-11-05 18:03] LABS: Partial Thromboplastin Time 23.4 sec (22.0-30.0); Prothrombin Time 11.1 sec (9.0-12.0)
--- NOTE | 2021-11-05 18:12 | XR ---
EXAMINATION: XR chest 2V DATE AND TIME: 11/05/2021 5:55 PM CLINICAL INDICATION: Chest Pain TECHNIQUE: PA and lateral chest radiograph COMPARISON: 12/08/2020 FINDINGS: The lungs are clear. The pleural spaces are negative. The cardiac silhouette is mildly enlarged, unchanged. The skeletal structures and soft tissues are negative for acute findings. IMPRESSION: No acute radiographic process.
[2021-11-05 18:14] LABS: Albumin 3.6 g/dL (3.5-5.0); Calcium 9.3 mg/dL (8.4-10.2); Magnesium 2.2 mg/dL (1.6-2.3); Potassium 4.3 mmol/L (3.5-5.1); Total Bilirubin 0.8 mg/dL (0.2-1.3); Total Protein 6.8 g/dL (6.3-8.2)
[2021-11-05] MEDS ORDERED: NALOXONE 0.4 MG/ML 1 ML VIAL IV PRN (19:09)
--- NOTE | 2021-11-05 19:09 | ED ---
General Adult HPI - General Chief complaint: Chest Pain Stated complaint: Chest pain Time Seen by Provider: 11/05/21 17:20 Source: patient, RN notes reviewed, old records reviewed Mode of arrival: EMS Limitations: no limitations - History of Present Illness Initial comments: Patient is an 86-year-old female with past medical history remarkable for CAD, aortic stenosis, chronic vertigo not on blood thinners presents emergency Department complaining of multiple complaints. Patient endorses lightheadedness sensation over the last 1-2 days. Is also endorsing a left-sided chest discomfort starting this morning that is since resolved following nitro a dministration by EMS on transport to the emergency department. Also received Benadryl 24 mg of aspirin. Denied any abdominal pain, nausea, vomiting. Denies any hematuria, dysuria. Denies a vertigo sensation, and states it felt more about lightheadedness. Today the bowel movement earlier which seemed to improve her overall discomfort but wants to be evaluated further. No history of MIs. No stents. - Related Data Home Medications Medication Instructions Recorded Confirmed Meclizine [Antivert] 25 mg PO BID 12/08/20 11/05/21 Prevagen 1 cap PO DAILY 12/08/20 11/05/21 Vit C/E/Zn/Coppr/Lutein/Zeaxan 1 cap PO BID 12/08/20 11/05/21 [Preservision Areds 2 Softgel] Aspirin EC [Ecotrin Low Dose] 81 mg PO DAILY 11/05/21 11/05/21 Cholecalciferol [Vitamin D3 (25 25 mcg PO DAILY 11/05/21 11/05/21 Mcg = 1000 Iu)] Cyanocobalamin (Vitamin B-12) 1,000 mcg PO DAILY 11/05/21 11/05/21 [Vitamin B-12] Sodium Chloride 5% Ophth Oint 1 drop BOTH EYES DAILY 11/05/21 11/05/21 [Artur 128] atenoloL [Tenormin] 25 mg PO DAILY 11/05/21 11/05/21 Allergies Allergy/AdvReac Type Severity Reaction Status Date / Time diazepam [From Valium] Allergy Confusion Verified 11/05/21 19:28 metoprolol Allergy Unknown Verified 11/05/21 19:28 Penicillins Allergy Rash/Hives Verified 11/05/21 19:28 Tetracyclines Allergy Rash/Hives Verified 11/05/21 19:28 Review of Systems ROS Statement: Those systems with pertinent positive or pertinent negative responses have been documented in the HPI. Review of Systems: CONST: Denies fever EYES: Denies blurry vision ENT: Denies nasal congestion C/V: Denies Chest pain RESP: Denies shortness of breath GI: Denies abdominal pain : Denies dysuria SKIN: Denies rash. MSK: Denies joint pain. NEURO: Denies headache ROS Other: All systems not noted in ROS Statement are negative. Past Medical History Past Medical History: Coronary Artery Disease (CAD), GERD/Reflux, Osteoarthritis (OA) Additional Past Medical History / Comment(s): vertigo since age 9, aortic stenosis, past hx migraines, "valve" issue, arthritis in back, retinal problem rt eye History of Any Multi-Drug Resistant Organisms: None Reported Past Surgical History: Cholecystectomy, Hysterectomy, Tonsillectomy Additional Past Surgical History / Comment(s): leticia cataracts Past Anesthesia/Blood Transfusion Reactions: No Reported Reaction Past Psychological History: Anxiety Smoking Status: Never smoker Past Alcohol Use History: None Reported Past Drug Use History: None Reported - Past Family History Mother Family Medical History: No Reported History Father Family Medical History: AICD/Pacemaker General Exam - General Exam Comments Initial Comments: General: Appears in no acute distress. HEAD: Normal with no signs of head trauma. EYES: PERRLA, EOMI, conjunctiva normal, no discharge. ENT: Hearing grossly intact, normal oropharynx. RESPIRATORY: Clear breath sounds bilaterally. No wheezes, rales, or rhonchi. C/V: Regular rate and rhythm. S1 and S2 auscultated, no edema, peripheral pulses 2+ and intact throughout ABD: Abd is soft, nontender, nondistended EXT: Normal range of motion, no obvious deformity SKIN: No rashes or lesions observed on exposed skin. NEURO: Alert and oriented x 4. Cranial nerves II-XII intact. No focal sensory or strength deficits. Limitations: no limitations Course Vital Signs 11/05/21 11/05/21 11/05/21 17:05 18:43 19:41 Temperature 98 F Pulse Rate 96 89 106 H Respiratory 18 16 17 Rate Blood Pressure 128/99 115/74 116/96 O2 Sat by Pulse 96 95 96 Oximetry Medical Decision Making - Medical Decision Making Based on patient's presentation and physical exam, I'm concerned for possible cardiopulmonary etiology for her current symptoms. We we'll obtain a cardiac workup as well as a urinalysis. She was in agreement this plan. She already received aspirin. She is asymptomatic at this time. EKG shows atrial fibrillation which she has a history of with no signs of acute ischemia. Chest x-ray shows no acute cardio pulmonary process. Labs were remarkable for an undetected troponin. Urinalysis eventually resulted as showing a possible UTI with white blood cells present, large amount leukocyte esterase. Remainder the labs are unremarkable. On reevaluation, patient remains asymptomatic. Vital signs remained within normal limits and stable. I did discuss with her the results of her laboratory studies and imaging. Heart score is moderate at 4. I believe it is best to admit the patient observation. We can continue IV antibiotics for her UTI, which I am treating because she was symptomatic with lightheadedness. Patient was in agreement this plan. I spoke with the admitting team, Dr. Acosta who accepted the admission. [facility] physician group receives the admission, as it is an observation admission under with PCP as Dr. Holbrook. Patient was admitted to observation telemetry. Cardiology is consulted. - Lab Data Result diagrams: 11/05/21 17:34 11/05/21 17:34 Lab Results 11/05/21 11/05/21 11/05/21 Range/Units 17:34 17:34 17:34 WBC 8.9 (3.8-10.6) k/uL RBC 4.43 (3.80-5.40) m/uL Hgb 13.9 (11.4-16.0) gm/dL Hct 44.7 (34.0-46.0) % MCV 100.9 H (80.0-100.0) fL MCH 31.5 (25.0-35.0) pg MCHC 31.2 (31.0-37.0) g/dL RDW 14.3 (11.5-15.5) % Plt Count 190 (150-450) k/uL MPV 8.6 Neutrophils % 64 % Lymphocytes % 22 % Monocytes % 8 % Eosinophils % 3 % Basophils % 1 % Neutrophils # 5.7 (1.3-7.7) k/uL Lymphocytes # 2.0 (1.0-4.8) k/uL Monocytes # 0.7 (0-1.0) k/uL Eosinophils # 0.3 (0-0.7) k/uL Basophils # 0.1 (0-0.2) k/uL Macrocytosis Slight PT 11.1 (9.0-12.0) sec INR 1.0 (<1.2) APTT 23.4 (22.0-30.0) sec Sodium 138 (137-145) mmol/L Potassium 4.3 (3.5-5.1) mmol/L Chloride 108 H (98-107) mmol/L Carbon Dioxide 23 (22-30) mmol/L Anion Gap 7 mmol/L BUN 31 H (7-17) mg/dL Creatinine 0.84 (0.52-1.04) mg/dL Est GFR (CKD-EPI)AfAm 72 (>60 ml/min/1.73 sqM) Est GFR (CKD-EPI)NonAf 62 (>60 ml/min/1.73 sqM) Glucose 144 H (74-99) mg/dL Calcium 9.3 (8.4-10.2) mg/dL Magnesium 2.2 (1.6-2.3) mg/dL Total Bilirubin 0.8 (0.2-1.3) mg/dL AST 26 (14-36) U/L ALT 14 (4-34) U/L Alkaline Phosphatase 69 (38-126) U/L Troponin I (0.000-0.034) ng/mL Total Protein 6.8 (6.3-8.2) g/dL Albumin 3.6 (3.5-5.0) g/dL Urine Color Urine Appearance (Clear) Urine pH (5.0-8.0) Ur Specific [place] (1.001-1.035) Urine Protein (Negative) Urine Glucose (UA) (Negative) Urine Ketones (Negative) Urine Blood (Negative) Urine Nitrite (Negative) Urine Bilirubin (Negative) Urine Urobilinogen (<2.0) mg/dL Ur Leukocyte Esterase (Negative) Urine RBC (0-5) /hpf Urine WBC (0-5) /hpf Ur Squamous Epith Cells (0-4) /hpf Urine Bacteria (None) /hpf Hyaline Casts (0-2) /lpf Urine Mucus (None) /hpf 11/05/21 11/05/21 Range/Units 17:34 18:57 WBC (3.8-10.6) k/uL RBC (3.80-5.40) m/uL Hgb (11.4-16.0) gm/dL Hct (34.0-46.0) % MCV (80.0-100.0) fL MCH (25.0-35.0) pg MCHC (31.0-37.0) g/dL RDW (11.5-15.5) % Plt Count (150-450) k/uL MPV Neutrophils % % Lymphocytes % % Monocytes % % Eosinophils % % Basophils % % Neutrophils # (1.3-7.7) k/uL Lymphocytes # (1.0-4.8) k/uL Monocytes # (0-1.0) k/uL Eosinophils # (0-0.7) k/uL Basophils # (0-0.2) k/uL Macrocytosis PT (9.0-12.0) sec INR (<1.2) APTT (22.0-30.0) sec Sodium (137-145) mmol/L Potassium (3.5-5.1) mmol/L Chloride (98-107) mmol/L Carbon Dioxide (22-30) mmol/L Anion Gap mmol/L BUN (7-17) mg/dL Creatinine (0.52-1.04) mg/dL Est GFR (CKD-EPI)AfAm (>60 ml/min/1.73 sqM) Est GFR (CKD-EPI)NonAf (>60 ml/min/1.73 sqM) Glucose (74-99) mg/dL Calcium (8.4-10.2) mg/dL Magnesium (1.6-2.3) mg/dL Total Bilirubin (0.2-1.3) mg/dL AST (14-36) U/L ALT (4-34) U/L Alkaline Phosphatase (38-126) U/L Troponin I <0.012 (0.000-0.034) ng/mL Total Protein (6.3-8.2) g/dL Albumin (3.5-5.0) g/dL Urine Color Yellow Urine Appearance Clear (Clear) Urine pH 5.0 (5.0-8.0) Ur Specific [place] 1.018 (1.001-1.035) Urine Protein Trace H (Negative) Urine Glucose (UA) Negative (Negative) Urine Ketones Negative (Negative) Urine Blood Negative (Negative) Urine Nitrite Negative (Negative) Urine Bilirubin Negative (Negative) Urine Urobilinogen <2.0 (<2.0) mg/dL Ur Leukocyte Esterase Large H (Negative) Urine RBC 1 (0-5) /hpf Urine WBC 13 H (0-5) /hpf Ur Squamous Epith Cells 1 (0-4) /hpf Urine Bacteria Rare H (None) /hpf Hyaline Casts 3 H (0-2) /lpf Urine Mucus Rare H (None) /hpf - EKG Data -: EKG Interpreted by Me EKG Comments: 12-lead Electrocardiogram Interpretation Note EKG was reviewed and interpreted by myself. 12-lead ECG performed at 1721 is interpreted by me as revealing atrial fibrillation at a rate of 83 beats per minute. [place] is normal. [place] is unobtainable, QRS duration is 100 ms, QTc is 389 ms.. There were no ST or T wave abnormalities to suggest myocardial ischemia or injury. R wave progression across the precordium was satisfactory. By my interpretation this EKG is non-diagnostic for acute ischemia. Disposition Clinical Impression: Chest pain Disposition: ADMITTED IP TO THIS HOSP Condition: Stable
[2021-11-05 19:16] LABS: Appearance,Urine Clear (Clear); Bacteria,Urine Rare /hpf; Bilirubin,Urine Negative (Negative); Blood,Urine Negative (Negative); Color,Urine Yellow; Glucose,Urine (UA) Negative (Negative); Hyaline Casts,Urine 3 /lpf (0-2); Ketones,Urine Negative (Negative); Leukocyte Esterase,Urine Large (Negative); Mucus,Urine Rare /hpf; Nitrite,Urine Negative (Negative); Protein,Urine Trace (Negative); RBC,Urine 1 /hpf (0-5); Specific Gravity,Urine 1.018 (1.001-1.035); Squamous Epithelial Cell,Urine 1 /hpf (0-4); Urobilinogen,Urine <2.0 mg/dL (<2.0); WBC,Urine 13 /hpf (0-5)
[2021-11-05] MEDS: HEPARIN SODIUM,PORCINE/PF 5,000 UNIT/0.5 ML SYRINGE SQ SCH (20:44)
[2021-11-05] MEDS: MECLIZINE 25 MG TAB PO SCH (20:45)
--- NOTE | 2021-11-05 23:44 | P.HPIM ---
History of Present Illness H&P Date: 11/05/21 The patient is an 86-year-old female with a PMH of diastolic CHF, afib (not on anticoagulation), severe aortic stenosis, severe mitral regurg, vertigo (BPPV), and GERD who presents to the emergency room with complaints of chest pain. The patient reports that she has been experiencing intermittent left-sided chest discomfort for the past several months. The pain occurs with and without exertion, usually pressure-like, without any clear inciting or alleviating factors, last for a few minutes to a few hours at a time, and then resolves spontaneously. Patient states she had the pain yesterday at around 1 PM, which then persisted, was 8/10, non-radiating, non pleuritic, without any associated symptoms. She became concerned as she lives by herself, and decided to contact EMS. The chest pain resolved after receiving nitroglycerin by EMS staff. Reports feeling back to her baseline at the time of interview. The patient states previously following with cardiology for intermittent episodes of chest discomfort for which she was recommended a cardiac catheterization which she had refused. Denied experiencing cough, fever, chills, nausea, vomiting, abdominal pain, diarrhea, or urinary complaints. Vital signs in the emergency room were within normal limits. Chest x-ray was unremarkable, with laboratory evaluation remarkable for BUN 31, glucose 144, and troponin less than 0.012. EKG had revealed A. fib at 85 bpm with T-wave inversion in lead 1. Review of systems: Pertinent positives and negatives as discussed in HPI, a complete review of systems was performed and all other systems are negative. Physical examination: General: non toxic, no distress, appears younger than stated age, normal weight Derm: no unusual rashes/lesions no unusual ecchymoses, warm, dry Head: atraumatic, normocephalic, symmetric Eyes: EOMI, no lid lag, anicteric sclera, pupils equal round reactive to light ENT: Nose and ears atraumatic, no thrush, no pharyngeal erythema Neck: No thyromegaly, no cervical lymphadenopathy, trachea midline, supple Mouth: no lip lesion, mucus membranes moist Cardiovascular: Grade 3 systolic murmur appreciated, positive posterior tibial pulse bilateral, no edema, capillary refill less than 2 seconds Lungs: CTA bilateral, no rhonchi, no rales , no accessory muscle use Abdominal: soft, nontender to palpation, no guarding, no appreciable organomegaly, normal bowel sounds Ext: no gross muscle atrophy, muscle strength 5 out of 5 in all 4 extremities grossly, no contractures, Neuro: CN II-XI grossly intact, light touch intact all 4 extremities, finger to nose within normal limits, Psych: Alert, oriented, appropriate affect Assessment/plan Atypical chest pain -Cardiology consult -Trend troponin -Cardiac monitoring -Continue with aspirin, statin -Patient may need evaluation for severe aortic stenosis and mitral regurgitation -F/u Echo A. fib -Unclear why patient is not on anticoagulation -Cardiology consulted Hyperglycemia -Check A1c DVT prophylaxis -Heparin subq The patient is admitted with an anticipated less than 2 midnight stay for evaluation of chest pain CODE STATUS: Full Code Discussed with: Patient Anticipated discharge date: in am Anticipated discharge place: Home Past Medical History Past Medical History: Coronary Artery Disease (CAD), GERD/Reflux, Osteoarthritis (OA) Additional Past Medical History / Comment(s): vertigo since age 9, aortic stenosis, past hx migraines, "valve" issue, arthritis in back, retinal problem rt eye History of Any Multi-Drug Resistant Organisms: None Reported Past Surgical History: Cholecystectomy, Hysterectomy, Tonsillectomy Additional Past Surgical History / Comment(s): leticia cataracts Past Anesthesia/Blood Transfusion Reactions: No Reported Reaction Past Psychological History: Anxiety Smoking Status: Never smoker Past Alcohol Use History: None Reported Past Drug Use History: None Reported - Past Family History Mother Family Medical History: No Reported History Father Family Medical History: AICD/Pacemaker Medications and Allergies Home Medications Medication Instructions Recorded Confirmed Type Meclizine [Antivert] 25 mg PO BID 12/08/20 11/05/21 History Prevagen 1 cap PO DAILY 12/08/20 11/05/21 History Vit C/E/Zn/Coppr/Lutein/Zeaxan 1 cap PO BID 12/08/20 11/05/21 History [Preservision Areds 2 Softgel] Aspirin EC [Ecotrin Low Dose] 81 mg PO DAILY 11/05/21 11/05/21 History Cholecalciferol [Vitamin D3 (25 25 mcg PO DAILY 11/05/21 11/05/21 History Mcg = 1000 Iu)] Cyanocobalamin (Vitamin B-12) 1,000 mcg PO DAILY 11/05/21 11/05/21 History [Vitamin B-12] Sodium Chloride 5% Ophth Oint 1 drop BOTH EYES DAILY 11/05/21 11/05/21 History [Artur 128] atenoloL [Tenormin] 25 mg PO DAILY 11/05/21 11/05/21 History Allergies Allergy/AdvReac Type Severity Reaction Status Date / Time diazepam [From Valium] Allergy Confusion Verified 11/05/21 19:28 metoprolol Allergy Unknown Verified 11/05/21 19:28 Penicillins Allergy Rash/Hives Verified 11/05/21 19:28 Tetracyclines Allergy Rash/Hives Verified 11/05/21 19:28 Physical Exam Vitals: Vital Signs Temp Pulse Pulse Resp BP BP Pulse Ox 11/05/21 20:00 84 18 117/68 95 11/05/21 19:41 106 H 17 116/96 96 11/05/21 18:43 89 16 115/74 95 11/05/21 17:05 98 F 96 18 128/99 96 Intake and Output 11/05/21 11/05/21 11/05/21 06:59 14:59 22:59 Other: Voiding Method Toilet Incontinent # Voids 1 Weight 74.843 kg Results CBC & Chem 7: 11/05/21 17:34 11/05/21 17:34 Labs: Abnormal Lab Results - Last 24 Hours (Table) 11/05/21 11/05/21 11/05/21 Range/Units 17:34 17:34 18:57 MCV 100.9 H (80.0-100.0) fL Chloride 108 H (98-107) mmol/L BUN 31 H (7-17) mg/dL Glucose 144 H (74-99) mg/dL Urine Protein Trace H (Negative) Ur Leukocyte Esterase Large H (Negative) Urine WBC 13 H (0-5) /hpf Urine Bacteria Rare H (None) /hpf Hyaline Casts 3 H (0-2) /lpf Urine Mucus Rare H (None) /hpf Thrombosis Risk Factor Assmnt - Choose All That Apply Each Risk Factor Represents 3 Points: Age 75 years or older Thrombosis Risk Factor Assessment Total Risk Factor Score: 3 Thrombosis Risk Factor Assessment Level: Moderate Risk
[2021-11-06] MEDS: ATORVASTATIN 80 MG TAB PO SCH ×2 (00:22→19:52)
[2021-11-06 06:36] LABS: Basophils # (A) 0.1 k/uL (0-0.2); Basophils % (A) 1 %; Eosinophils # (A) 0.5 k/uL (0-0.7); Eosinophils % (A) 6 %; HCT 43.8 % (34.0-46.0); HGB 13.4 gm/dL (11.4-16.0); Lymphocytes # (A) 2.5 k/uL (1.0-4.8); Lymphocytes % (A) 30 %; MCH 31.4 pg (25.0-35.0); MCHC 30.5 g/dL (31.0-37.0); MCV 102.8 fL (80.0-100.0); Macrocytosis Slight; Mean Platelet Volume 8.8; Monocytes # (A) 0.8 k/uL (0-1.0); Monocytes % (A) 9 %; Neutrophils # (A) 4.2 k/uL (1.3-7.7); Neutrophils % (A) 51 %; Platelet Count 173 k/uL (150-450); RBC 4.26 m/uL (3.80-5.40); RDW 14.2 % (11.5-15.5); WBC 8.3 k/uL (3.8-10.6)
[2021-11-06 06:52] LABS: Calcium 9.5 mg/dL (8.4-10.2); Magnesium 2.1 mg/dL (1.6-2.3); Potassium 4.4 mmol/L (3.5-5.1)
[2021-11-06] MEDS: CHOLECALCIFEROL 25 MCG (1000 IU) TABLET PO SCH (09:13)
[2021-11-06] MEDS: atenoloL 25 MG TAB PO SCH (09:13)
[2021-11-06] MEDS: ASPIRIN 81 MG PO SCH (09:13)
[2021-11-06] MEDS: MECLIZINE 25 MG TAB PO SCH ×2 (09:13→19:52)
[2021-11-06] MEDS: HEPARIN SODIUM,PORCINE/PF 5,000 UNIT/0.5 ML SYRINGE SQ SCH ×2 (09:13→19:53)
--- NOTE | 2021-11-06 10:49 | P.CRDCN ---
History of Present Illness Consult date: 11/06/21 History of present illness: HISTORY OF PRESENT ILLNESS: This is a 86-year-old female with a past medical history significant for severe aortic stenosis and atrial fibrillation. Patient follows in the office with Dr. Alexander. We have been asked to see the patient in consultation for chest pain. Patient examined at the bedside. Patient states she has been having chest pain on and off for the past few months. She states the pain lasted a little longer than usual yesterday which concerned her so she came to the ER. She denies any chest pain or pressure this morning. Denies SOB. She has known severe and has been discussing possible TAVR in the future with Dr. Alexander. Per nursing, the patient is not on anticoagulation due to personal choice due to financial reasons. * EKG reveals atrial fibrillation with controlled ventricular rate * Chest xray negative for acute process * Laboratory data: WBC 8.3. Hemoglobin 13.4. Platelet count 173. Sodium 140. Potassium 4.4. BUN 25. Creatinine 0.87. troponin negative 3 * Current home cardiac medications include atenolol 25 mg daily * Most recent echocardiogram obtained in December 2020 revealed ejection fraction 55-60% * Cardiac catheterization history: January 2021 revealing normal coronary arteries REVIEW OF SYSTEMS: At the time of my exam: CONSTITUTIONAL: Denies fever or chills. HEENT: Denies blurred vision, vision changes, or eye pain. Denies hemoptysis CARDIOVASCULAR: Denies chest pain. Denies orthopnea. Denies PND. Denies palpitations RESPIRATORY: Denies shortness of breath. GASTROINTESTINAL: Denies abdominal pain. Denies nausea or vomiting. HEMATOLOGIC: Denies bleeding disorders. GENITOURINARY: Denies any blood in urine. SKIN: Denies pruitis. Denies rash. PHYSICAL EXAM: VITAL SIGNS: Reviewed. GENERAL: Well-developed in no acute distress. HEENT: Head is normocephalic. Pupils are equal, round. Sclerae anicteric. Mucous membranes of the mouth are moist. Neck supple. No JVD or thyromegaly LUNGS: Respirations even and unlabored. Lungs essentially clear to auscultation bilaterally. HEART: Irregular rate and rhythm. S1 and S2 heard.systolic murmur noted ABDOMEN: Soft. Nondistended. Nontender. EXTREMITIES: Normal range of motion. No clubbing or cyanosis. Peripheral pulses intact. No lower extremity edema NEUROLOGIC: Awake and alert. Oriented x 3. ASSESSMENT: Chest pain, troponin negative x 3 Permanent atrial fibrillation Severe aortic stenosis PLAN: An acute coronary event has been ruled out Continue home cardiac medications Patient may be discharged today and follow up outpatient with Dr. Alexander Nurse practitioner note has been reviewed by physician. Signing provider agrees with the documented findings, assessment, and plan of care. Past Medical History Past Medical History: Coronary Artery Disease (CAD), GERD/Reflux, Osteoarthritis (OA) Additional Past Medical History / Comment(s): vertigo since age 9, aortic stenosis, past hx migraines, "valve" issue, arthritis in back, retinal problem rt eye History of Any Multi-Drug Resistant Organisms: None Reported Past Surgical History: Cholecystectomy, Hysterectomy, Tonsillectomy Additional Past Surgical History / Comment(s): leticia cataracts Past Anesthesia/Blood Transfusion Reactions: No Reported Reaction Past Psychological History: Anxiety Smoking Status: Never smoker Past Alcohol Use History: None Reported Past Drug Use History: None Reported - Past Family History Mother Family Medical History: No Reported History Father Family Medical History: AICD/Pacemaker Medications and Allergies Home Medications Medication Instructions Recorded Confirmed Type Meclizine [Antivert] 25 mg PO BID 12/08/20 11/05/21 History Prevagen 1 cap PO DAILY 12/08/20 11/05/21 History Vit C/E/Zn/Coppr/Lutein/Zeaxan 1 cap PO BID 12/08/20 11/05/21 History [Preservision Areds 2 Softgel] Aspirin EC [Ecotrin Low Dose] 81 mg PO DAILY 11/05/21 11/05/21 History Cholecalciferol [Vitamin D3 (25 25 mcg PO DAILY 11/05/21 11/05/21 History Mcg = 1000 Iu)] Cyanocobalamin (Vitamin B-12) 1,000 mcg PO DAILY 11/05/21 11/05/21 History [Vitamin B-12] Sodium Chloride 5% Ophth Oint 1 drop BOTH EYES DAILY 11/05/21 11/05/21 History [Artur 128] atenoloL [Tenormin] 25 mg PO DAILY 11/05/21 11/05/21 History Allergies Allergy/AdvReac Type Severity Reaction Status Date / Time diazepam [From Valium] Allergy Confusion Verified 11/05/21 19:28 metoprolol Allergy Unknown Verified 11/05/21 19:28 Penicillins Allergy Rash/Hives Verified 11/05/21 19:28 Tetracyclines Allergy Rash/Hives Verified 11/05/21 19:28 Physical Exam Vitals: Vital Signs Temp Pulse Pulse Resp BP BP Pulse Ox 11/06/21 03:53 97.9 F 73 18 107/73 97 11/06/21 02:00 90 18 11/06/21 00:00 96.7 F L 90 18 112/75 93 L 11/05/21 20:00 84 18 117/68 95 11/05/21 19:41 106 H 17 116/96 96 11/05/21 18:43 89 16 115/74 95 11/05/21 17:05 98 F 96 18 128/99 96 Intake and Output 11/05/21 11/06/21 11/06/21 22:59 06:59 14:59 Other: Voiding Method Toilet Toilet Incontinent Incontinent # Voids 1 1 Weight 74.843 kg Results 11/06/21 06:01 11/06/21 06:01 Cardiac Enzymes 11/05/21 11/05/21 11/05/21 Range/Units 17:34 17:34 20:21 AST 26 (14-36) U/L Troponin I <0.012 <0.012 (0.000-0.034) ng/mL 11/06/21 Range/Units 00:27 AST (14-36) U/L Troponin I <0.012 (0.000-0.034) ng/mL Coagulation 11/05/21 Range/Units 17:34 PT 11.1 (9.0-12.0) sec APTT 23.4 (22.0-30.0) sec CBC 11/05/21 11/06/21 Range/Units 17:34 06:01 WBC 8.9 8.3 (3.8-10.6) k/uL RBC 4.43 4.26 (3.80-5.40) m/uL Hgb 13.9 13.4 (11.4-16.0) gm/dL Hct 44.7 43.8 (34.0-46.0) % Plt Count 190 173 (150-450) k/uL Comprehensive Metabolic Panel 11/05/21 11/06/21 Range/Units 17:34 06:01 Sodium 138 140 (137-145) mmol/L Potassium 4.3 4.4 (3.5-5.1) mmol/L Chloride 108 H 107 (98-107) mmol/L Carbon Dioxide 23 26 (22-30) mmol/L BUN 31 H 25 H (7-17) mg/dL Creatinine 0.84 0.87 (0.52-1.04) mg/dL Glucose 144 H 97 (74-99) mg/dL Calcium 9.3 9.5 (8.4-10.2) mg/dL AST 26 (14-36) U/L ALT 14 (4-34) U/L Alkaline Phosphatase 69 (38-126) U/L Total Protein 6.8 (6.3-8.2) g/dL Albumin 3.6 (3.5-5.0) g/dL Current Medications Generic Name Dose Route Start Last Admin Trade Name Freq PRN Reason Stop Dose Admin Aspirin 81 mg 11/06/21 09:00 11/06/21 09:13 Aspirin 81 Mg PO 81 mg DAILY MANNY Administration Atenolol 25 mg 11/06/21 09:00 11/06/21 09:13 Atenolol 25 Mg Tab PO 25 mg DAILY MANNY Administration Atorvastatin Calcium 80 mg 11/05/21 23:45 11/06/21 00:22 Atorvastatin 80 Mg Tab PO 80 mg HS MANNY Administration Cholecalciferol 25 mcg 11/06/21 09:00 11/06/21 09:13 Cholecalciferol 25 Mcg (1000 Iu) Tablet PO 25 mcg DAILY MANNY Administration Heparin Sodium (Porcine) 5,000 unit 11/05/21 21:00 11/06/21 09:13 Heparin Sodium,Porcine/Pf 5,000 Unit/0.5 Ml Syringe SQ 5,000 unit Q12HR MANNY Administration Ceftriaxone Sodium 2 gm/ 50 mls @ 100 mls/hr 11/05/21 21:00 11/05/21 20:45 Sodium Chloride IVPB 100 mls/hr HS MANNY Administration Protocol Meclizine HCl 25 mg 11/05/21 21:00 11/06/21 09:13 Meclizine 25 Mg Tab PO 25 mg BID MANNY Administration Naloxone HCl 0.2 mg 11/05/21 19:09 Naloxone 0.4 Mg/Ml 1 Ml Vial IV Q2M PRN Opioid Reversal Sodium Chloride 1 applic 11/06/21 09:00 Sodium Chloride 5% Ophth Oint 3.5 Gm Tube BOTH EYES DAILY MANNY Intake and Output 11/05/21 11/06/21 11/06/21 22:59 06:59 14:59 Other: Voiding Method Toilet Toilet Incontinent Incontinent # Voids 1 1 Weight 74.843 kg 11/06/21 06:01 11/06/21 06:01
[2021-11-06] MEDS: SODIUM CHLORIDE 5% OPHTH OINT 3.5 GM TUBE BOTH EYES SCH (11:43)
--- NOTE | 2021-11-06 13:51 | CA ---
Transthoracic Echo Report Name: Luly Blanca Age: 86 Gender: F : 1935 Exam Date: 11/06/2021 10:02 Exam Location: [facility] Ht (in): 68 Wt (lb): 165 Ordering Physician: Poli Sawant MD Attending/Referring Phys: Pit Operator Kelley Cutler RDCS Procedure CPT: Indications: Chest Pain Cardiac Hx: Technical Quality: Technically difficult study Contrast 1: Lumason Total Dose (mL): 4 Contrast 2: Total Dose (mL): MEASUREMENTS (Male / Female) Normal Values 2D ECHO IVS Diastolic Thickness 2.0 cm 0.6 - 1.0 / 0.6 - 0.9 cm LA Volume 104.5 cm 18 - 58 / 22 - 52 cm M-MODE Aortic Root Diameter MM 3.3 cm AV Cusp Separation MM 0.5 cm DOPPLER AV Peak Velocity 484.1 cm/s AV Peak Gradient 93.8 mmHg AV Mean Velocity 321.4 cm/s AV Mean Gradient 49.7 mmHg AV Velocity Time Integral 102.5 cm LVOT Peak Velocity 60.1 cm/s LVOT Peak Gradient 1.4 mmHg MV Peak Velocity 178.0 cm/s MV Peak Gradient 12.7 mmHg MV Mean Velocity 101.3 cm/s MV Mean Gradient 5.2 mmHg MV Velocity Time Integral 32.4 cm MV Area PHT 3.1 cm FINDINGS Left Ventricle Severely increased left ventricular wall thickness. Left ventricular cavity size normal. Normal LV systolic function. Left ventricular ejection fraction is estimated at 55-60 %. Severely increased septal wall thickness. Right Ventricle Right ventricle not well visualized. Right Atrium Right atrium not well visualized. Left Atrium Severe left atrial dilatation. No evidence for an atrial septal defect. Mitral Valve Severe mitral annular calcification. Moderate mitral regurgitation. Thickened mitral valve without stenosis. Aortic Valve Severe aortic stenosis with a peak velocity of 4.8 m/s, peak gradient 94 mmHg, mean gradient 50 mmHg. Tricuspid Valve Tricuspid valve not well visualized. Trace to mild tricuspid regurgitation. Pulmonic Valve Pulmonic valve not well visualized. Pericardium No pericardial effusion. Fat pad noted Aorta Aortic root and proximal ascending aorta not well visualized. CONCLUSIONS Normal LV size and systolic function with concentric LVH. Mitral valve calcification with moderate mitral regurgitation. Severe aortic stenosis. Right-sided pressures are not well quantified. No pericardial effusion Previewed by: Dr. Oj Wang MD (Electronically Signed) Final Date: 06 November 2021 13:50
--- NOTE | 2021-11-06 15:52 | P.PN ---
Subjective Progress Note Date: 11/06/21 Hospital course: Patient is a very pleasant 86-year-old female with a past medical history of chronic diastolic heart failure, atrial fibrillation not on anticoagulation, severe aortic stenosis, severe mitral regurgitation, vertigo, and GERD. She presented to the emergency department with a chief complaint of chest pain. She was seen and fully evaluated in the emergency department. EKG was completed revealing atrial flutter with a controlled ventricular rate of 83 bpm. Chest x- ray negative for acute cardiopulmonary process. CBC and CMP were unremarkable with the exception of mild prerenal azotemia with BUN of 31. Troponin less than 0.012. Urinalysis positive for leukocytes and 13 WBCs. Patient was admitted under our services with consultation and cardiology. Physical exam: Patient seen and fully evaluated at bedside this morning. Troponins were trended throughout the night and all were less than 0.0123 draws. Patient reports full resolution of chest pain and currently denies having any complaints occluding headache, lightheadedness, dizziness, chest pain, palpitations, shortness of breath, abdominal pain, nausea, vomiting, or experiencing any weakness/numbness/tingling in her extremities. Echocardiogram completed and pending results. Cardiology evaluating and patient will likely be discharged later today versus tomorrow morning pending results and further recommendations from cardiology. Vital signs reviewed and stable. General: Nontoxic, no distress and appears stated age. Derm: Skin warm and dry, normal coloration for ethnicity. Head: Atraumatic, normocephalic and symmetric. Eyes: EOMs intact, no lid lag, and anicteric sclera Mouth: no lip lesions, mucus membranes moist Cardiovascular: regular rate and rhythm with normal S1S2, no murmur, positive posterior tibial pulses bilaterally, and cap refill < 2 seconds. Lungs: Respirations even, regular, and unlabored on room air. Lungs CTA bilaterally, no rhonchi, no rales, no wheezing, and no accessory muscle usage. Abdominal: soft, nontender to palpation, no guarding, no appreciable organomegaly Ext: ROM intact. No gross muscle atrophy, no edema, no contractures Neuro: Speech clear, face symmetrical and CN II-XII grossly intact with no noted focal neuro deficits Psych: Alert and oriented to person, place, time, and situation. Appropriate and pleasant affect. Assessment and Plan of Care: Chest pain, rule out acute coronary event -Cardiology consult, appreciate further recommendations -Telemetry monitoring -Troponins negative at less than 0.0123 draws. -Cardiac diet -Continuation of Aspirin, atorvastatin, and atenolol -Echocardiogram Chronic persistent atrial fibrillation/flutter -Patient not on anticoagulation, patient reports she chose not to take anticoagulant secondary to cost of medication. -DVT prophylaxis at this time with heparin Hypertension -Continue daily medication regimen with atenolol 25 mg each morning. Vertigo -Continue medication regimen with meclizine 25 mg twice daily as needed for dizziness/lightheadedness. CODE STATUS: Full code DVT prophylaxis: Heparin Discussed with: Patient, patient's friend at bedside, and RN Anticipated discharge date: Likely tomorrow morning Anticipated discharge place: Home A total of 38 minutes was spent on the care of this complex patient more than 50% of the time was spent in counseling and care coordination. Objective - Vital Signs Vital signs: Vital Signs Temp 97.9 F 11/06/21 03:53 Pulse 73 11/06/21 03:53 Resp 18 11/06/21 03:53 BP 107/73 11/06/21 03:53 Pulse Ox 97 11/06/21 03:53 Intake & Output 11/05/21 11/06/21 11/06/21 18:59 06:59 18:59 Weight 74.843 kg 74.843 kg Other: Voiding Method Toilet Incontinent # Voids 1 - Labs CBC & Chem 7: 11/06/21 06:01 11/06/21 06:01 Labs: Abnormal Lab Results - Last 24 Hours (Table) 11/05/21 11/05/21 11/05/21 Range/Units 17:34 17:34 18:57 MCV 100.9 H (80.0-100.0) fL MCHC (31.0-37.0) g/dL Chloride 108 H (98-107) mmol/L BUN 31 H (7-17) mg/dL Glucose 144 H (74-99) mg/dL Urine Protein Trace H (Negative) Ur Leukocyte Esterase Large H (Negative) Urine WBC 13 H (0-5) /hpf Urine Bacteria Rare H (None) /hpf Hyaline Casts 3 H (0-2) /lpf Urine Mucus Rare H (None) /hpf 11/06/21 11/06/21 Range/Units 06:01 06:01 MCV 102.8 H (80.0-100.0) fL MCHC 30.5 L (31.0-37.0) g/dL Chloride (98-107) mmol/L BUN 25 H (7-17) mg/dL Glucose (74-99) mg/dL Urine Protein (Negative) Ur Leukocyte Esterase (Negative) Urine WBC (0-5) /hpf Urine Bacteria (None) /hpf Hyaline Casts (0-2) /lpf Urine Mucus (None) /hpf Microbiology - Last 24 Hours (Table) 11/05/21 18:57 Urine Culture - Preliminary Urine,Voided
[2021-11-07] MEDS: MECLIZINE 25 MG TAB PO SCH (08:03)
[2021-11-07] MEDS: ASPIRIN 81 MG PO SCH (08:03)
[2021-11-07] MEDS: CHOLECALCIFEROL 25 MCG (1000 IU) TABLET PO SCH (08:03)
[2021-11-07] MEDS: HEPARIN SODIUM,PORCINE/PF 5,000 UNIT/0.5 ML SYRINGE SQ SCH (08:03)
[2021-11-07] MEDS: atenoloL 25 MG TAB PO SCH (08:03)
[2021-11-07] MEDS: SODIUM CHLORIDE 5% OPHTH OINT 3.5 GM TUBE BOTH EYES SCH (08:04)
[2021-11-07 08:06] VITALS: TEMP 97.1
--- NOTE | 2021-11-07 11:26 | P.PN ---
Subjective Progress Note Date: 11/07/21 Patient is seen resting comfortably in bed today. Patient denies chest pain or shortness of breath. States she is ready to go home. Patient remains in atrial fibrillation with a controlled ventricle rate. She had an echocardio completed which showed a normal LV function with an ejection fraction of 55-60%, severe aortic stenosis, and moderate mitral valve regurgitation. Patient is not on any anticoagulation does not wish be started on one at this time due to personal preference. Patient will follow-up outpatient with Dr. Alexander to discuss outpatient TAVR. Patient is on atenolol 25 mg daily. Objective - Vital Signs Vital signs: Vital Signs Temp 97.1 F L 11/07/21 08:00 Pulse 110 H 11/07/21 08:00 Resp 16 11/07/21 08:00 BP 123/75 11/07/21 08:00 Pulse Ox 97 11/07/21 08:00 Intake & Output 11/06/21 11/07/21 11/07/21 18:59 06:59 18:59 Intake Total 480 120 Balance 480 120 Intake: Oral 480 120 Other: Voiding Method Toilet Toilet Incontinent Incontinent # Voids 1 2 - Exam PHYSICAL EXAM: VITAL SIGNS: Reviewed. GENERAL: Well-developed in no acute distress. HEENT: Head is normocephalic. Pupils are equal, round. Sclerae anicteric. Mucous membranes of the mouth are moist. NECK: Supple. No JVD or thyromegaly RESPIRATORY: Respirations even and unlabored. Lungs diminished to auscultation bilaterally. CARDIO: irregular rate and rhythm. Systolic ejection murmur heard in the aortic area EXTREMITIES: Normal range of motion. No clubbing or cyanosis. Peripheral pulses intact. Negative for bilateral lower extremity edema NEURO: Orientated to person, time, mood is appropriate - Labs CBC & Chem 7: 11/06/21 06:01 11/06/21 06:01 Labs: Microbiology - Last 24 Hours (Table) 11/05/21 18:57 Urine Culture - Preliminary Urine,Voided Gram Neg Bacilli Assessment and Plan Assessment: Chest pain, troponin negative x 3 Permanent atrial fibrillation Severe aortic stenosis Plan: An acute coronary event has been ruled out Continue home cardiac medications Patient may be discharged today and follow up outpatient with Dr. Alexander
--- NOTE | 2021-11-07 11:34 | P.DS ---
Providers Date of admission: 11/07/21 08:23 Attending physician: Shanita Acosta DO Consults: 11/05/21 19:10 Consult Physician Routine Consulting Provider: [facility] Consult Reason/Comments: chest pain, resolved Do you want consulting provider notified?: Yes, Notify in am Primary care physician: Evens Holbrook MD Hospital Course: Patient is a very pleasant 86-year-old female with a past medical history of chronic diastolic heart failure, atrial fibrillation not on anticoagulation, severe aortic stenosis, severe mitral regurgitation, vertigo, and GERD. She presented to the emergency department with a chief complaint of chest pain. She was seen and fully evaluated in the emergency department. EKG was completed revealing atrial flutter with a controlled ventricular rate of 83 bpm. Chest x- ray negative for acute cardiopulmonary process. CBC and CMP were unremarkable with the exception of mild prerenal azotemia with BUN of 31. Troponin less than 0.012. Urinalysis positive for leukocytes and 13 WBCs. Cardiology was consulted. And evaluated patient in the hospital. Acute coronary event was ruled out. 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 Her chest pain did resolve. She was not having any complaints of difficulty in breathing no diaphoresis on discharge. Patient did complete a three-day course of IV antibiotics in the hospital due to abnormal UA present on admission. Patient was not having any complaints of dysuria. A full complete physical exam was performed on day of discharge. Pertinent positives and negatives noted above. Discharge time greater than 30 minutes Patient Condition at Discharge: Stable Plan - Discharge Summary Discharge Rx Participant: Yes New Discharge Prescriptions: Continue Vit C/E/Zn/Coppr/Lutein/Zeaxan [Preservision Areds 2 Softgel] 1 cap PO BID Meclizine [Antivert] 25 mg PO BID Prevagen 1 cap PO DAILY atenoloL [Tenormin] 25 mg PO DAILY Cyanocobalamin (Vitamin B-12) [Vitamin B-12] 1,000 mcg PO DAILY Sodium Chloride 5% Ophth Oint [Artur 128] 1 drop BOTH EYES DAILY Cholecalciferol [Vitamin D3 (25 Mcg = 1000 Iu)] 25 mcg PO DAILY Aspirin EC [Ecotrin Low Dose] 81 mg PO DAILY Discharge Medication List Meclizine [Antivert] 25 mg PO BID 12/08/20 [History] Prevagen 1 cap PO DAILY 12/08/20 [History] Vit C/E/Zn/Coppr/Lutein/Zeaxan [Preservision Areds 2 Softgel] 1 cap PO BID 12/08/20 [History] Aspirin EC [Ecotrin Low Dose] 81 mg PO DAILY 11/05/21 [History] Cholecalciferol [Vitamin D3 (25 Mcg = 1000 Iu)] 25 mcg PO DAILY 11/05/21 [History] Cyanocobalamin (Vitamin B-12) [Vitamin B-12] 1,000 mcg PO DAILY 11/05/21 [History] Sodium Chloride 5% Ophth Oint [Artur 128] 1 drop BOTH EYES DAILY 11/05/21 [History] atenoloL [Tenormin] 25 mg PO DAILY 11/05/21 [History] Follow up Appointment(s)/Referral(s): Oj Wang MD [STAFF PHYSICIAN] - 1 Week Evens Holbrook MD [Primary Care Provider] - 1-2 days Activity/Diet/Wound Care/Special Instructions: Activity: As tolerated. Take breaks as needed. Diet: Heart healthy and carb consistent diet. Avoid salts, or foods with hidden salts such as canned or boxed foods and frozen dinners. Extra salt makes your heart work harder and traps the fluid in your body for longer. Special Instructions: Take all of your medications as directed and remember to keep all of your doctor's appointments and follow-up as needed. Thank you for allowing us to participate in your care, it was truly a pleasure having you for our patient!!!
[2021-11-07 12:19] VITALS: BP 107/81; PULSE 78; RESP 17
== END 2021-11-07 13:40 | disposition home or self-care (01) ==
LOC: EC 17:03 → 3SCARD 19:11 → OBSVTOIN 11-07 08:23 → INTOOBSV 11-07 08:23 → UNDODISIN 11-07 13:40
PROVIDERS: ADMIT Internal Medicine; ATTEND Internal Medicine
DX: R07.89 Other chest pain (principal); I08.0 Rheumatic disorders of both mitral and aortic valves; I48.21 Permanent atrial fibrillation; I11.0 Hypertensive heart disease with heart failure; I50.32 Chronic diastolic (congestive) heart failure; I25.10 Atherosclerotic heart disease of native coronary artery without angina pectoris; I48.92 Unspecified atrial flutter; H81.10 Benign paroxysmal vertigo, unspecified ear; R73.9 Hyperglycemia, unspecified; Z91.14 Patient's other noncompliance with medication regimen; N39.0 Urinary tract infection, site not specified; K21.9 Gastro-esophageal reflux disease without esophagitis; G43.909 Migraine, unspecified, not intractable, without status migrainosus; M47.9 Spondylosis, unspecified; F41.9 Anxiety disorder, unspecified; Z79.82 Long term (current) use of aspirin; Z79.899 Other long term (current) drug therapy; Z88.0 Allergy status to penicillin; Z88.1 Allergy status to other antibiotic agents; Z88.8 Allergy status to other drugs, medicaments and biological substances; Z90.49 Acquired absence of other specified parts of digestive tract; Z90.710 Acquired absence of both cervix and uterus; Z98.42 Cataract extraction status, left eye; Z98.41 Cataract extraction status, right eye; Z98.890 Other specified postprocedural states; Z82.49 Family history of ischemic heart disease and other diseases of the circulatory system
CPT/HCPCS: 96365; 96366 ×2; 96372 ×3; 99285; 36415; 94760; 93005; 80053; 80048; 83735 ×2; 84484 ×2; 85025 ×2; 85610; 85730; 81001; 87086; 87077; 87186; 83036; 71046; G0378 ×3; C8929; J0696 ×2; Q9950; J1644 ×3; 93306

== ENCOUNTER 2021-12-01 06:18 | Day surgery (SDC) | payer MEDICARE ==
[~2021-12-01 06:18] MED LIST changes: -ASPIRIN 325 MG TAB PO ONE; -ATORVASTATIN 80 MG TAB PO ONE; -HEPARIN SODIUM,PORCINE 10,000 UNIT in SODIUM CHLORIDE 0.9% 1,000 ML IRRIGATION PRN; -HEPARIN SODIUM,PORCINE 2,500 UNIT in SODIUM CHLORIDE 0.9% 250 ML IRRIGATION PRN; -SODIUM CHLORIDE 0.9% 1,000 ML in EMPTY BAG 1 BAG IV ONE; +SODIUM CHLORIDE 0.9% 1,000 ML in EMPTY BAG 1 BAG IV SCH
[2021-12-01] MEDS ORDERED: SODIUM CHLORIDE 0.9% 1,000 ML IV ONE (06:38)
[2021-12-01 06:57] VITALS: TEMP 98.2
[2021-12-01] MEDS ORDERED: ATORVASTATIN 80 MG TAB PO ONE (07:00)
[2021-12-01] MEDS ORDERED: HEPARIN SODIUM,PORCINE 2,500 UNIT in SODIUM CHLORIDE 0.9% 250 ML IRRIGATION PRN (07:00)
[2021-12-01] MEDS ORDERED: ASPIRIN 325 MG TAB PO ONE (07:00)
[2021-12-01] MEDS ORDERED: HEPARIN SODIUM,PORCINE 10,000 UNIT in SODIUM CHLORIDE 0.9% 1,000 ML IRRIGATION PRN (07:00)
[2021-12-01] MEDS ORDERED: VERAPAMIL 2.5 MG/ML 2 ML AMP ONE ×2 (07:11)
[2021-12-01 07:12] LABS: INR 1.1 (<1.2); Prothrombin Time 11.9 sec (9.0-12.0)
[2021-12-01] MEDS ORDERED: HEPARIN SODIUM 1,000 UN/ML (10ML VL) ONE (07:35)
[2021-12-01] MEDS ORDERED: MIDAZOLAM 2 MG/2 ML VIAL IVP ONE (07:57)
[2021-12-01] MEDS ORDERED: LIDOCAINE 1% INJ 10MG/ML (30 ML VIAL-PF) SQ ONE (07:59)
[2021-12-01] MEDS: VERAPAMIL SYRINGE (5 MG/10 ML) INTRAARTER ONE ×2 (08:03→08:11)
[2021-12-01] MEDS ORDERED: HEPARIN SODIUM 1,000 UN/ML (10ML VL) IV ONE (08:03)
[2021-12-01] MEDS ORDERED: IOPAMIDOL-370 125ML BTL INJ ONE (08:11)
[2021-12-01] MEDS ORDERED: RX INFO: IV CONTRAST WAS GIVEN 1 EACH MISC MISCELLANE PRN (08:15)
[2021-12-01] MEDS ORDERED: SODIUM CHLORIDE 0.9% 1,000 ML IV SCH (08:15)
--- NOTE | 2021-12-01 08:19 | P.PCN ---
Date of Procedure: 12/01/21 Operative Findings: CARDIAC CATHETERIZATION PERFORMING PHYSICIAN: Danilo Alexander MD, RPVI PROCEDURE PERFORMED: 1. Selective right and left coronary angiogram INDICATION: Severe aortic stenosis COMPLICATION: None APPROACH: Right radial artery LEVEL OF SEDATION: Moderate with a sedation length of 15 minute PROCEDURE DESCRIPTION: After obtaining an informed consent, the patient was brought to cardiac laboratory immunologist. Local anesthesia was performed using lidocaine subcutaneously. The right radial artery was cannulated using Seldinger technique, the guidewire passed easily, following that we advanced a 5-Nepalese sheath dilator assembly, the wire and dilator were removed and sheath was flushed. Following that, 2 mg of verapamil along with 3000 unit heparin were given. Selective right and left coronary angiogram using a 6-Nepalese JR4 and JL 3.5 catheters. The procedure was completed there was no complication. SELECTIVE CORONARY ANGIOGRAM: The right coronary artery: Is a medium caliber vessel nondominant vessel appears to be angiographically normal Left main: Angiographically normal and bifurcates into a dominant left circumflex as well as left anterior descending artery The left circumflex: Is a large caliber vessel. Its a dominant vessel. The left circumflex system is angiographically normal. Distally bifurcates into PDA and PLV branches both appeared to be angiographically normal. Proximally gives rises into OM1 which appeared to be angiographically normal The left anterior descending artery: Is a large caliber vessel. Its angiographically normal. Gives rises into a large diagonal branch which appeared to be angiographically normal CONCLUSION: 1. Normal coronary angiogram POSTPROCEDURE MANAGEMENT: The patient to be evaluated for transcutaneous aortic valve replacement
[2021-12-01 19:05] VITALS: PULSE 98; RESP 14
[2021-12-01 19:14] VITALS: BP 113/57
== END 2021-12-01 13:05 | disposition home or self-care (01) ==
LOC: CATHCVL 06:18
PROVIDERS: ATTEND Internal Medicine Interventional Cardiology
DX: I08.0 Rheumatic disorders of both mitral and aortic valves (principal); I48.21 Permanent atrial fibrillation; I50.32 Chronic diastolic (congestive) heart failure; Z20.822 Contact with and (suspected) exposure to COVID-19; Z79.01 Long term (current) use of anticoagulants; Z79.899 Other long term (current) drug therapy; Z88.1 Allergy status to other antibiotic agents; Z88.0 Allergy status to penicillin; Z88.8 Allergy status to other drugs, medicaments and biological substances; Z82.49 Family history of ischemic heart disease and other diseases of the circulatory system
CPT/HCPCS: 93454; 85610; 87635; C1894; C1769; C1751; J2250; J2001; J1644; Q9967

== ENCOUNTER → 2021-12-29 | Outpatient (CLI) | payer MEDICARE ==
[2021-12-29 09:52] LABS: Basophils # (A) 0.1 k/uL (0-0.2); Basophils % (A) 1 %; Eosinophils # (A) 0.3 k/uL (0-0.7); Eosinophils % (A) 3 %; HCT 46.3 % (34.0-46.0); HGB 15.1 gm/dL (11.4-16.0); Lymphocytes # (A) 1.8 k/uL (1.0-4.8); Lymphocytes % (A) 23 %; MCH 32.9 pg (25.0-35.0); MCHC 32.6 g/dL (31.0-37.0); MCV 100.9 fL (80.0-100.0); Macrocytosis Slight; Mean Platelet Volume 9.4; Monocytes # (A) 0.7 k/uL (0-1.0); Monocytes % (A) 10 %; Neutrophils # (A) 4.4 k/uL (1.3-7.7); Neutrophils % (A) 59 %; Platelet Count 209 k/uL (150-450); RBC 4.58 m/uL (3.80-5.40); RDW 14.8 % (11.5-15.5); WBC 7.5 k/uL (3.8-10.6)
[2021-12-29 09:57] LABS: INR 1.8 (<1.2); Partial Thromboplastin Time 28.4 sec (22.0-30.0); Prothrombin Time 18.4 sec (9.0-12.0)
[2021-12-29 09:58] LABS: ALT 14 U/L (4-34); AST 24 U/L (14-36); African American GFR (CKD) 58 (>60 ml/min/1.73 sqM); Albumin 4.3 g/dL (3.5-5.0); Albumin/Globulin Ratio 1.2; Alkaline Phosphatase 91 U/L (38-126); Anion Gap 8 mmol/L; Blood Urea Nitrogen 24 mg/dL (7-17); Calcium 9.3 mg/dL (8.4-10.2); Carbon Dioxide 24 mmol/L (22-30); Chloride 106 mmol/L (98-107); Globulin 3.6 g/dL; Glucose 114 mg/dL (74-99); Non-African American GFR(CKD) 50 (>60 ml/min/1.73 sqM); Potassium 4.7 mmol/L (3.5-5.1); Sodium 138 mmol/L (137-145); Total Bilirubin 1.2 mg/dL (0.2-1.3); Total Protein 7.9 g/dL (6.3-8.2)
[2021-12-29 10:03] LABS: Appearance,Urine Clear (Clear); Bilirubin,Urine Negative (Negative); Blood,Urine Negative (Negative); Color,Urine Yellow; Glucose,Urine (UA) Negative (Negative); Ketones,Urine Negative (Negative); Leukocyte Esterase,Urine Small (Negative); Mucus,Urine Rare /hpf; Nitrite,Urine Negative (Negative); PH, Urine 5.5 (5.0-8.0); Protein,Urine Trace (Negative); RBC,Urine <1 /hpf (0-5); Specific Gravity,Urine 1.014 (1.001-1.035); Squamous Epithelial Cell,Urine <1 /hpf (0-4); Urobilinogen,Urine <2.0 mg/dL (<2.0); WBC,Urine 1 /hpf (0-5)
--- NOTE | 2021-12-29 11:49 | CT ---
EXAMINATION TYPE: CT TAVR Planning DATE OF EXAM: 12/29/2021 HISTORY: Nonrheumatic aortic valve stenosis CT DLP: /1692.0 mGycm Automated Exposure Control for Dose Reduction was Utilized. CONTRAST: CT scan of the chest, abdomen and pelvis is performed with IV Contrast, patient injected with 125 mL of Isovue 370. COMPARISON: CT dated 12/08/2020 TECHNIQUE: Helical imaging obtained through the chest, abdomen and pelvis during arterial phase jacquelin aranza administration of radiographic contrast intravenously. FINDINGS: See report from [facility] regarding preprocedural planning CHEST: Lower Neck and Thyroid: Large left thyroid lobe lesion measuring 3 x 3.9 cm, for correlation with thy roid ultrasound results. Lungs: Stable left lower lobe posterior 2 mm nodule. No other significant pulmonary abnormality ident ified. Central Airway: No significant findings Pleura: No significant findings Pulmonary Arteries: Dilated pulmonary trunk measuring 3.3 cm, suggesting pulmonary hypertension. Heart and Pericardium: Dilated left atrium. Coronary and arterial atherosclerotic calcification. Aort ic and mitral valve calcifications are noted. No pericardial effusion. Lymph Nodes: 10 mm precarinal lymph node with other scattered smaller mediastinal lymph nodes. Mediastinum & Esophagus: No significant findings ABDOMEN/PELVIS: Please note arterial phase of the imaging limits detailed evaluation of the solid abdominal organs. Liver: No significant findings Spleen: No significant findings Kidneys: No suspicious renal lesion. Adrenal Glands: No significant findings Pancreas: Fatty infiltration of the pancreas. Gallbladder: Previous cholecystectomy. Bowel and Mesentery: Scattered uncomplicated colonic diverticulosis. Lymph Nodes: No significant findings Urinary Bladder: Dependent hyperdensity within the urinary bladder likely representing excreted contr ast. Pelvic Organs: Previous hysterectomy. No gross adnexal mass. Other: Arterial atherosclerotic calcifications. Diffuse osteopenia. Marked collapse of T11 vertebral body being slightly retropulsed into the spinal canal without significant bony spinal canal stenosis, likely chronic. Degenerative changes of the lumbar spine. Other Lines/Tubes/Devices/Hardware: Dental work is noted. IMPRESSION: Preoperative planning CT scan. Left thyroid lobe lesion as described above, for correlati on with thyroid ultrasound results. Other findings as described above.
--- NOTE | 2021-12-29 14:07 | US ---
EXAMINATION TYPE: US carotid duplex BILAT DATE OF EXAM: 12/29/2021 COMPARISON: US dated 2014 CLINICAL HISTORY: R55 Syncope. EXAM MEASUREMENTS: RIGHT: Peak Systolic Velocity (PSV) cm/sec ----- Right CCA: 35.0 ----- Right ICA: 41.2 ----- Right ECA: 44.6 ICA/CCA ratio: 1.18 RIGHT: End Diastole cm/sec ----- Right CCA: 9.6 ----- Right ICA: 15.4 ----- Right ECA: 6.2 LEFT: Peak Systolic Velocity (PSV) cm/sec ----- Left CCA: 40.1 ----- Left ICA: 45.3 ----- Left ECA: 57.6 ICA/CCA ratio: 1.13 LEFT: End Diastole cm/sec ----- Left CCA: 12.3 ----- Left ICA: 12.0 ----- Left ECA: 12.0 VERTEBRALS (direction of flow): Right Vertebral: Antegrade Left Vertebral: Antegrade Rhythm: Suspect an underlying arrhythmia Grayscale, color Doppler, spectral Doppler imaging performed the carotid arteries. Waveform analysis does not show significant stenosis of the proximal internal carotid arteries. No significant stenosis seen. IMPRESSION: No hemodynamic significant stenosis of the proximal internal carotid arteries by Doppler criteria, an indirect measurement of carotid stenosis , and there is a cardiac arrhythmia noted. Criteria for Assigning % of Stenosis / Diameter reduction (Estimation based on the indirect measurements of the internal carotid artery velocities (ICA PSV). 1. Normal (no stenosis)=ICA PSV < 125 cm/s: ratio < 2.0: ICA EDV<40 cm/s. 2. Less than 50% stenosis=ICA PSV < 125 cm/s: ratio < 2.0: ICA EDV<40 cm/s. 3. 50 to 69% stenosis=ICA PSV of 125 to 230 cm/s: ration 2.0 ? 4.0: ICA EDV 40-100 cm/s. 4. Greater than 70% stenosis to near occlusion= ICA PSV > 230 cm/s: ratio > 4.0: ICA EDV > 100 cm/s. 5. Near occlusion= ICA PSV velocities may be low or undetectable: variable ratio and ICA EDV. 6. Total occlusion=unable to detect flow.
[2021-12-29 15:14] LABS: Hepatitis A Antibody IgM Nonreactive (Nonreactive); Hepatitis B Core IgM Nonreactive (Nonreactive); Hepatitis B Surface Antigen Nonreactive (Nonreactive); Hepatitis C IgG Antibody Nonreactive (Nonreactive)
[2021-12-29 16:16] LABS: Chol/HDL Ratio 2.99 Ratio; LDL Cholesterol,Calculated 85.5 mg/dL (0.0-131.0)
== END | disposition home or self-care (01) ==
LOC: LABWHC1 08:38
PROVIDERS: ATTEND Thoracic Surgery (Cardiothoracic Vascular Surgery)
DX: Z01.818 Encounter for other preprocedural examination (principal); I35.0 Nonrheumatic aortic (valve) stenosis; E04.9 Nontoxic goiter, unspecified
CPT/HCPCS: 94150; 83880; 80061; 80053; 80074; 84443; 83735; 85025; 85610; 85730; 81001; 87086; 83036; 93880; 71275; 36415 ×2; 74174; Q9967

== ENCOUNTER → 2022-02-15 | Outpatient (CLI) | payer MEDICARE ==
[2022-02-15 11:25] LABS: INR 1.2 (<1.2); Prothrombin Time 12.6 sec (9.0-12.0)
== END | disposition home or self-care (01) ==
LOC: LABPAT 10:45
PROVIDERS: ATTEND Thoracic Surgery (Cardiothoracic Vascular Surgery)
DX: I35.0 Nonrheumatic aortic (valve) stenosis (principal)
CPT/HCPCS: 85610; 85730

== ENCOUNTER 2022-02-17 05:45 | Inpatient (IN) | payer MEDICARE ==
[2022-02-17] MEDS ORDERED: CLOPIDOGREL 75 MG TAB PO ONE (06:00)
[2022-02-17] MEDS ORDERED: NITROGLYCERIN-D5W PMX 25 MG/250 ML BTL IV PRN (06:00)
[2022-02-17] MEDS ORDERED: INSULIN REGULAR 100 UNIT in SODIUM CHLORIDE 0.9% 100 ML IV PRN (06:00)
[2022-02-17] MEDS ORDERED: LACTATED RINGERS 1,000 ML IV SCH ×2 (06:00→09:45)
[2022-02-17] MEDS ORDERED: ATORVASTATIN 10 MG TAB PO ONE (06:00)
[2022-02-17] MEDS ORDERED: PROTAMINE SULFATE 250 MG in EMPTY BAG 1 BAG IV PRN (06:00)
[2022-02-17] MEDS ORDERED: CLEVIDIPINE BUTYRATE 25 MG in EMPTY BAG 1 BAG IV PRN (06:00)
[2022-02-17] MEDS ORDERED: ELECTROLYTE-A SOLUTION 1,000 ML with POTASSIUM CHLORIDE 100 MEQ, MAGNESIUM SULFATE 16 M... IV PRN ×5 (06:00)
[2022-02-17] MEDS ORDERED: TRANEXAMIC ACID 2,000 MG in SODIUM CHLORIDE 0.9% 80 ML IV PRN (06:00)
[2022-02-17] MEDS ORDERED: atenoloL 25 MG TAB PO ONE (06:00)
[2022-02-17] MEDS ORDERED: ASPIRIN 325 MG TAB PO ONE (06:00)
[2022-02-17] MEDS ORDERED: SODIUM CHLORIDE 0.9% 500 ML 500 ML INTRAARTER PRN (06:00)
[2022-02-17 06:31] LABS: Glucose,Whole Blood 112 mg/dL (70-110)
[2022-02-17] MEDS ORDERED: SODIUM CHLORIDE 0.9% 1,000 ML IV ONE (06:33)
[2022-02-17 07:37] LABS: INR 1.1 (<1.2); Prothrombin Time 11.9 sec (9.0-12.0)
[2022-02-17] MEDS ORDERED: PHENYLEPHRINE-0.9% NACL SYG 1,000 MCG/10 ML SYRINGE ONE (07:48)
[2022-02-17] MEDS ORDERED: PROTAMINE SULFATE 10 MG/ML 5 ML VIAL IV ONE (07:48)
[2022-02-17] MEDS ORDERED: SUCCINYLCHOLINE CHLORIDE 200 MG/10 ML VIAL IV ONE (07:48)
[2022-02-17] MEDS ORDERED: ceFAZolin 1,000 MG VIAL ONE (07:48)
[2022-02-17] MEDS ORDERED: WATER FOR INJECTION, STERILE 10 ML VIAL IV ONE (07:48)
[2022-02-17] MEDS ORDERED: ROCURONIUM 10 MG/ML (5 ML VIAL) IV ONE (07:48)
[2022-02-17] MEDS ORDERED: NEOSTIGMINE 1 MG/ML 10 ML VIAL ONE (07:48)
[2022-02-17] MEDS ORDERED: fentaNYL (PF) 50 MCG/ML 2 ML AMP ONE (07:48)
[2022-02-17] MEDS ORDERED: HEPARIN SODIUM,PORCINE 10,000 UNIT/ML 1 ML VIAL ONE (07:48)
[2022-02-17] MEDS ORDERED: PROPOFOL 10 MG/ML 20 ML VIAL IV ONE (07:48)
[2022-02-17] MEDS ORDERED: SODIUM CHLORIDE 0.9% 100 ML BAG ONE (07:48)
[2022-02-17] MEDS ORDERED: GLYCOPYRROLATE 0.2 MG/ML 2 ML VIAL ONE (07:48)
[2022-02-17] MEDS ORDERED: LIDOCAINE 2% INJ 20 MG/ML (2 ML VIAL) ONE (07:48)
[2022-02-17] MEDS ORDERED: IOPAMIDOL-250 100ML BTL INTRAARTER ONE (09:35)
[2022-02-17] MEDS ORDERED: IOPAMIDOL-370 150ML BTL INJ ONE (09:40)
[2022-02-17] MEDS ORDERED: Potassium Replacement Protocol 1 EACH MISC MISCELLANE PRN (09:45)
[2022-02-17] MEDS ORDERED: IPRATROPIUM-ALBUTEROL 3 ML NEB INHALATION PRN (09:45)
[2022-02-17] MEDS ORDERED: ACETAMINOPHEN TAB 325 MG TAB PO PRN (09:45)
[2022-02-17] MEDS ORDERED: Magnesium Replacement Protocol 1 EACH MISC MISCELLANE PRN (09:45)
[2022-02-17] MEDS ORDERED: CALCIUM GLUCONATE IN NACL 2 GM in SALINE 1 100ML.BAG IVPB PRN (09:45)
[2022-02-17] MEDS ORDERED: ONDANSETRON 4 MG/2 ML VIAL IVP PRN (09:45)
--- NOTE | 2022-02-17 09:49 | P.OP ---
Description of Procedure: Transcatheter Aoritc Valve Replacement Operative report PROCEDURE PERFORMED: 1. Percutaneous Aortic Valve Implantation using a 29 mm Core-Valve Evolut-Pro Plus. 2. Transesophageal echocardiography (performed by anesthesia) 3. Ultrasound guided access and repair of right femoral artery access site by Perclose closure device. 4. Placement of temporary pacemaker wire. 5. Aortic root angiography 6. Pre-TAVR BAV with a 20mm True balloon INDICATIONS: 1. 86 year-old with a history of severe symptomatic aortic valve stenosis. 2. Multiple other comorbidities PERFORMING PHYSICIANS: 1. Kimo Joya, Interventional Cardiology 2. Yen Winslow MD, Cardiothoracic Surgeon. 3. Chivo Newby MD Proctoring Interventional cardiology SEDATION: General anesthesia provided by anesthesia, see separate note APPROACH: Right femoral artery via percutaneous approach PROCEDURE DESCRIPTION: The patient was discussed at valve clinic with multidisciplinary approach with cardiothoracic surgeon as well as machine greaser and thought better treated with TAVR. Risks, benefits, and alternatives of the procedure had been explained to the patient who understood the risks and agreed to proceed. After consents were obtained, patient was brought to the transcatheter aortic valve implantation room in the cardiac botany laboratory assistant and general anesthesia was provided by the anesthesiologist (see separate report). Once full body sterile prep was performed, right femoral venous access was obtained using modified Seldinger technique and ultrasound guidance and a 6FR sheath was place. Next a 5Fr temporary pacemaker was advanced into the RV. Pacing threshholds were checked and deemed appropriate. Next the left femoral artery was accessed using a modified Seldinger technique, ultrasound guidance and micropuncture technique. A 6 Dominican Rabi sheath was placed in the left femoral artery. Next, a 6-Dominican pigtail catheter was advanced into the aorta and positioned in the aortic root, aortic root angiography was performed to determine optimal deployment angle. The right femoral artery was accessed using modified Seldinger technique, micropuncture technique and under direct ultrasound guidance. Femoral angiogram was done showing access in the common femoral artery and a 6Fr sheath was placed. Next preclose technique was performed using 2 Percloses. Next a 0.035 Lunderquist wire was placed in the Aorta via a pigtail catheter. Over that the arteriotomy was serially dilated and a 14 Fr Weskan sheath was placed. Next a 6F- AL1 catheter was advanced over a wire to the aortic root. A straight wire was advanced through the catheter and used to cross the severely stenotic valve. There was some difficulty advancing the AL catheter into the LV past the severely stenotic valve however able to be performed with some manipulation. The AL1 was then exchanged for a 0.35 Amplatz super stiff and 6Fr pigtail catheter was positioned in the apex. Pressure measurements were obtained. A 0.035 Lunderquist wire was then positioned in the apex. Pre TAVR balloon aortic valvuloplasty was performed with a 20 mm True balloon with a rapid pacing. Next a 29 mm Corevalve Evolut-Pro Plus was advanced. The valve was then positioned across the aortic valve and confirmed with aortic root angiography. The valve was initially partially deployed however needed repositioning and therefore was recaptured. The valve was then deployed in proper position using slow deployment and with rapid pacing in conjuncture with aortic root angiography and BUD. The delivery system was withdrawn back into the arch and an aortic root injection in conjunction with BUD demonstrated a satisfactory result. There was mild para valvular leak. There was no evidence of any other significant abnormalities. The preclose Perclose was then deployed in the right femoral artery and hemostasis was achieved. A 6-Dominican rim catheter was then advanced to the level of the r ight iliac artery via the left femoral access. Femoral angiogram was performed that showed no contrast leak. The left femoral angiogram demonstrated an arteriotomy in the common femoral artery and this was repaired using a 6F angioseal device with complete hemostasis. The temporary venous pacemaker was removed and the 6-Dominican venous sheath was removed with pressure held and hemostasis obtained. The patient was then transported to the ICU in hemodynamically stable condition, requiring no pressor support. COMPLICATIONS: None CONCLUSION: 1. Implantaion of 29 Core-Valve Evolut-Pro Plus transcatheter aortic valve via right femoral approach under BUD and fluoro guidance with mild cristina-valvular aortic regurgitation. 2. Placement of temporary pacemaker wire 3. Aortic Root Aortogram. 4. Pre-TAVR BAV with a 20mm True balloon RECOMMENDATIONS: The patient will be monitored in the ICU for hemodynamic and electrical stability. Patient will be on Coumadin and Plavix.
[2022-02-17 10:12] LABS: Glucose,Whole Blood 101 mg/dL (70-110)
[2022-02-17 10:41] LABS: INR 1.2 (<1.2); Partial Thromboplastin Time 25.4 sec (22.0-30.0); Prothrombin Time 12.7 sec (9.0-12.0)
[2022-02-17 10:45] LABS: Basophils # (A) 0.1 k/uL (0-0.2); Basophils % (A) 1 %; Eosinophils # (A) 0.2 k/uL (0-0.7); Eosinophils % (A) 3 %; HGB 13.2 gm/dL (11.4-16.0); Lymphocytes # (A) 1.4 k/uL (1.0-4.8); Lymphocytes % (A) 17 %; MCH 31.7 pg (25.0-35.0); MCHC 31.5 g/dL (31.0-37.0); MCV 100.7 fL (80.0-100.0); Macrocytosis Slight; Mean Platelet Volume 9.5; Monocytes # (A) 0.5 k/uL (0-1.0); Monocytes % (A) 5 %; Neutrophils # (A) 6.2 k/uL (1.3-7.7); Neutrophils % (A) 74 %; Platelet Count 152 k/uL (150-450); RBC 4.17 m/uL (3.80-5.40); RDW 14.8 % (11.5-15.5); WBC 8.4 k/uL (3.8-10.6)
[2022-02-17 10:46] LABS: Ionized Calcium 4.9 mg/dL (4.5-5.3)
--- NOTE | 2022-02-17 10:54 | XR ---
EXAMINATION TYPE: XR chest 1V portable DATE OF EXAM: 02/17/2022 COMPARISON: 11/05/2021 HISTORY: Shortness of breath TECHNIQUE: Single frontal view of the chest is obtained. FINDINGS: Postsurgical change suspected involving the aortic root. Diffuse interstitial pattern with left lower lobe infiltrate and small effusion. Underlying COPD suspected. No sizable pneumothorax. H ypertrophic change of the spine. Diffuse osteopenia. Atherosclerotic change aorta. Persistent elevate d left hemidiaphragm. IMPRESSION: 1. New left lower lobe infiltrate with small effusion correlate for COPD. Mild central venous congest ion or interstitial pneumonitis in the differential diagnosis.
[2022-02-17 10:55] LABS: Albumin 3.3 g/dL (3.5-5.0); Calcium 8.8 mg/dL (8.4-10.2); Magnesium 1.9 mg/dL (1.6-2.3); Potassium 4.5 mmol/L (3.5-5.1); Total Bilirubin 0.6 mg/dL (0.2-1.3); Total Protein 6.2 g/dL (6.3-8.2)
[2022-02-17 11:22] VITALS: BMI 25.2
--- NOTE | 2022-02-17 11:49 | P.ANPRN ---
Procedure Note - Anesthesia - BUD Intraop Pre Bypass BUD Intraop - Anesthesia Indication: Transcatheter aortic valve replacement Date of Procedure: 02/17/22 Pre-operative Diagnosis: Severe aortic stenosis Post-operative Diagnosis: Status post transcatheter aortic valve replacement Surgeon: Luis Alfredo Winslow Left Ventricle: Ejection fraction 55-60%, no regional wall motion abnormalities noted Ejection Fraction: Normal Regional Wall Motion Abnormalities: None Left Ventricle Hypertrophy: No R. Ventricle Function: Normal Aortic Valve: Severe aortic stenosis noted. Heavily calcified aortic valve. Mean gradient is 55 mmHg and peak gradient is 85 mmHg. Anatomy: Trileaflet Aortic Stenosis: Severe Aortic Regurgitation: Mild Mitral Valve: Extension mitral annulus calcification seen. Peak gradient across the mitral valve 12 mmHg and mean gradient is 6 mmHg Mitral Stenosis: Moderate Mitral Regurgitation: Moderate Tricuspid Stenosis: None Tricuspid Regurgitation: Moderate Pulmonic Stenosis: None Pulmonic Regurgitation: Trace R. Atrial Dilation: Yes R. Atrial PFO: No L. Atrial Dilation: Yes Aortic Dissection: No Aortic Calcification: None Plural Effusion: None - BUD Intraop Post Bypass BUD Intraop Post Bypass Procedure Performed: Transcatheter aortic valve replacement Ejection Fraction: Normal Regional Wall Motion Abnormalities: None R. Ventricle Function: Normal Aortic Valve: Prosthetic valve noted in the aortic position appears to be seated well and there is a mild paravalvular regurgitation. Paravalvular leak appears to be in significant hemodynamically. The peak gradient across the prosthetic valve is 10 mmHg and mean gradient is 6 mmHg Mitral Valve: Unchanged Tricuspid: Unchanged Pulmonic: Unchanged Aortic Dissection: No
--- NOTE | 2022-02-17 16:09 | P.CNPUL ---
History of Present Illness Consult date: 02/17/22 Requesting physician: Gay Otto Reason for consult: other Chief complaint: TAVR History of present illness: 86-year-old female patient with multiple medical problems including known history of aortic valve stenosis, atrial fibrillation, chronic CHF with diastolic dysfunction, osteoporosis, GERD and anxiety, who was evaluated at the [facility]. Patient was having symptoms of shortness of breath with exertion with occasional chest discomfort. Echocardiogram revealed severe aortic valve stenosis, and EF of 55-60% and peak across the aortic valve of 4.8 m/s and a mean gradient of 15 mmHg. There was moderate mitral regurgitation. Cardiac catheterization on 12/01/2021 showed normal coronary arteries. Carotid duplex showed no significant carotid stenosis. Pulmonary function test showed FEV1 of 1.6 L or 71% of predicted. Due to her multiple comorbidities and advanced age and frailty patient was offered transcatheter aortic valve replacement which she opted for. On February 17, 2022 patient underwent percutaneous aortic valve implantation, with intraoperative transesophageal echocardiography. Patient is seen in the postoperative period in the intensive care unit, patient is resting comfortably in bed, she is on 2 L of oxygen satting 95%. Chest x-ray showed new left lower lobe infiltrate with small effusion, mild central venous congestion. Postoperative labs have been reviewed showing white blood cell count is 8.4, hemoglobin is 13.2, INR is 1.2, CO2 is 1 9, BUN is 21 creatinine 0.78. Hemodynamically patient is stable, not in any vasopressors. Patient remains in atrial fibrillation, with a controlled rate. Cefazolin for prophylactic antibiotics. Review of Systems All systems: negative Constitutional: Denies chills, Denies fever Eyes: denies blurred vision, denies pain Ears, nose, mouth and throat: Denies headache, Denies sore throat Cardiovascular: Denies chest pain, Denies shortness of breath Respiratory: Denies cough Gastrointestinal: Denies abdominal pain, Denies diarrhea, Denies nausea, Denies vomiting Genitourinary: Denies dysuria, Denies hematuria Musculoskeletal: Denies myalgias Integumentary: Denies pruritus, Denies rash Neurological: Denies numbness, Denies weakness Psychiatric: Denies anxiety, Denies depression Endocrine: Denies fatigue, Denies weight change Past Medical History Past Medical History: Atrial Fibrillation, Coronary Artery Disease (CAD), GERD/Reflux, Osteoarthritis (OA) Additional Past Medical History / Comment(s): vertigo since age 9, aortic stenosis, past hx migraines, "valve" issue, arthritis in neck & back, retinal problem rt eye, SOB w/exertion History of Any Multi-Drug Resistant Organisms: None Reported Past Surgical History: Cholecystectomy, Heart Catheterization, Hysterectomy, Tonsillectomy Additional Past Surgical History / Comment(s): nestor cataracts Past Anesthesia/Blood Transfusion Reactions: No Reported Reaction Smoking Status: Former smoker - Past Family History Mother Family Medical History: No Reported History Father Family Medical History: AICD/Pacemaker Medications and Allergies Home Medications Medication Instructions Recorded Confirmed Type Prevagen 1 cap PO DAILY 12/08/20 02/17/22 History Vit C/E/Zn/Coppr/Lutein/Zeaxan 1 cap PO BID 12/08/20 02/17/22 History [Preservision Areds 2 Softgel] Cholecalciferol [Vitamin D3 (25 25 mcg PO DAILY 11/05/21 02/17/22 History Mcg = 1000 Iu)] Cyanocobalamin (Vitamin B-12) 1,000 mcg PO DAILY 11/05/21 02/17/22 History [Vitamin B-12] Sodium Chloride 5% Ophth Oint 1 drop BOTH EYES DAILY 11/05/21 02/17/22 History [Artur 128] atenoloL [Tenormin] 25 mg PO DAILY 11/05/21 02/17/22 History Warfarin [Coumadin] 3 mg PO DAILY 11/30/21 02/17/22 History Acetaminophen Tab [Tylenol] 650 mg PO Q4HR PRN tab 02/18/22 Rx Atorvastatin [Lipitor] 40 mg PO DAILY #30 tab 02/18/22 Rx Clopidogrel [Plavix] 75 mg PO DAILY #30 tab 02/18/22 Rx Pantoprazole [Protonix] 40 mg PO AC-BRKFST #30 tab 02/18/22 Rx Sennosides-Docusate Sodium 2 each PO HS #14 tab 02/18/22 Rx [Senokot-S] Allergies Allergy/AdvReac Type Severity Reaction Status Date / Time metoprolol Allergy Rash/Hives Verified 02/17/22 06:35 Penicillins Allergy Rash/Hives Verified 02/17/22 06:35 Tetracyclines Allergy Rash/Hives Verified 02/17/22 06:35 diazepam [From Valium] AdvReac Confusion Verified 02/17/22 06:35 Physical Exam Vitals: Vital Signs Temp Pulse Pulse Resp BP BP BP 02/17/22 14:15 80 19 106/44 02/17/22 14:00 98.6 F 79 13 106/44 02/17/22 13:45 87 18 106/44 02/17/22 13:30 77 18 02/17/22 13:15 77 19 106/44 02/17/22 13:00 97.6 F 86 18 106/44 02/17/22 12:45 65 16 106/44 02/17/22 12:30 71 12 106/44 02/17/22 12:15 72 19 106/44 02/17/22 12:00 97.4 F L 72 12 106/44 02/17/22 11:45 66 17 106/44 02/17/22 11:30 70 14 106/44 02/17/22 11:15 82 16 106/44 02/17/22 11:00 69 13 106/44 02/17/22 10:45 16 146/52 02/17/22 10:42 79 11 L 02/17/22 10:20 16 138/52 02/17/22 10:05 16 141/65 02/17/22 06:31 98 F 118 H 18 130/84 117/78 Pulse Ox 02/17/22 14:15 96 02/17/22 14:00 94 L 02/17/22 13:45 94 L 02/17/22 13:30 93 L 02/17/22 13:15 93 L 02/17/22 13:00 95 02/17/22 12:45 95 02/17/22 12:30 91 L 02/17/22 12:15 94 L 02/17/22 12:00 94 L 02/17/22 11:45 92 L 02/17/22 11:30 94 L 02/17/22 11:15 95 02/17/22 11:00 94 L 02/17/22 10:45 93 L 02/17/22 10:42 92 L 02/17/22 10:20 93 L 02/17/22 10:05 95 02/17/22 06:31 95 Intake and Output 08/09/22 08/10/22 08/10/22 22:59 06:59 14:59 Intake Total 50 1050 Balance 50 1050 Intake: IV 50 1050 LR 250 Other: Voiding Method External Catheter Weight 76.2 kg 76.2 kg ABP, PAP, CO, CI - Last 8 Hours Arterial Blood Pressure 147/52 Arterial Blood Pressure 144/60 Arterial Blood Pressure 154/57 Arterial Blood Pressure 151/58 Arterial Blood Pressure 154/59 Arterial Blood Pressure 151/53 Arterial Blood Pressure 146/52 Arterial Blood Pressure 144/57 Arterial Blood Pressure 138/47 Arterial Blood Pressure 153/58 Arterial Blood Pressure 141/51 Arterial Blood Pressure 143/58 Arterial Blood Pressure 147/56 Arterial Blood Pressure 139/53 Arterial Blood Pressure 137/47 GENERAL EXAM: Alert, very pleasant, 86-year-old female patient,sitting up in a chair, on 2 L of oxygen pulse ox of 95% comfortable in no apparent distress. HEAD: Normocephalic/atraumatic. EYES: Normal reaction of pupils, equal size. Conjunctiva pink, sclera white. NOSE: Clear with pink turbinates. THROAT: No erythema or exudates. NECK: No masses, no JVD, no thyroid enlargement, no adenopathy. CHEST: No chest wall deformity. Symmetrical expansion. LUNGS: Equal air entry with no crackles, wheeze, rhonchi or dullness. CVS: Irregular rate and rhythm, normal S1 and S2, no gallops, no murmurs, no rubs ABDOMEN: Soft, nontender. No hepatosplenomegaly, normal bowel sounds, no guarding or rigidity. EXTREMITIES: No clubbing, no edema, no cyanosis, 2+ pulses and upper and lower extremities. Nestor groin punctures CDI MUSCULOSKELETAL: Muscle strength and tone normal. SPINE: No scoliosis or deformity SKIN: No rashes CENTRAL NERVOUS SYSTEM: Alert and oriented -3. No focal deficits, tone is normal in all 4 extremities. PSYCHIATRIC: Alert and oriented -3. Appropriate affect. Intact judgment and insight. Results - Laboratory Findings CBC and BMP: 02/18/22 06:18 02/18/22 06:18 PT/INR, D-dimer PT 12.7 sec (9.0-12.0) H 02/17/22 10:27 INR 1.2 (<1.2) H 02/17/22 10:27 Abnormal lab findings: Abnormal Labs 02/15/22 02/17/22 02/17/22 10:58 06:21 10:27 MCV 100.7 H PT INR Carbon Dioxide BUN Glucose POC Glucose (mg/dL) 112 H AST Total Protein Albumin Crossmatch See Detail 02/17/22 02/17/22 10:27 10:27 MCV PT 12.7 H INR 1.2 H Carbon Dioxide 19 L BUN 21 H Glucose 115 H POC Glucose (mg/dL) AST 53 H Total Protein 6.2 L Albumin 3.3 L Crossmatch - Diagnostic Findings Chest x-ray: report reviewed, image reviewed Assessment and Plan Plan: Assessment: #1. Severe aortic valve stenosis, status post transcatheter aortic valve replacement, placement of temporary pacemaker wire, and transesophageal echocardiogram on 02/17/2022 #2. Symptoms of exertional dyspnea and chest pain related to aortic valve stenosis #3. History of atrial fibrillation on Coumadin, controlled #4. Chronic CHF with diastolic dysfunction #5. Osteoarthritis #6. GERD/reflux #7. Anxiety Plan: Patient is doing well in the postoperative period Hemodynamically stable Prophylactic antibiotics GI and DVT prophylaxis home meds have been reordered CT surgery Follow-up echocardiogram in the morning, Continue close monitoring in the intensive care unit Chest x-ray in the morning I have personally seen and examined the patient, performed the documentation and the assessment and plan as written. Number of minutes spent on the visit: [15] I have personally seen and examined the patient and reviewed the documentation. I performed a joint evaluation with the nurse practitioner in this evaluation was done more than 30 minutes. I fully agree with the documentation above and the plan of care. The patient is doing well. No cardiac arrhythmias. Hemodynamically stable. We'll monitor the patient intensive care unit for the next 24 hours. Echocardiogram in the morning (valvular function. Chest x-ray in the morning. We'll continue I have personally seen and examined the patient and reviewed the documentation. I performed a joint evaluation with the nurse practitioner in this evaluation was done more than30 minutes. I fully agree with the documentation above and the plan of care. The patient doing extremely well. The patient is stable for now. We'll continue to follow. Hemodynamically stable. No cardiac arrhythm ias. Time with Patient: Greater than 30
--- NOTE | 2022-02-17 16:23 | OP ---
OPERATIVE REPORT ATTENDING SURGEON: Dr. Luis Alfredo Winslow. ATTENDING CLOUD SYSTEMS ARCHITECT: Dr. Kimo Joya. PREOPERATIVE DIAGNOSIS: Critical symptomatic aortic stenosis. POSTOPERATIVE DIAGNOSIS: Critical symptomatic aortic stenosis. PROCEDURE PERFORMED: Transcatheter aortic valve replacement with a #29 Evolut PRO+ transcatheter valve with placement of a left femoral vein temporary pacemaker lead. ANESTHESIA: General. BLOOD LOSS: About 100 mL. SUMMARY: The patient was brought to the operating room and placed in supine position. After administration of general endotracheal anesthetic and placement of arterial line and adequate IV access, the body was prepped and draped in normal sterile fashion using chlorhexidine paint and sterile towels. Please note that the remainder of the TAVR procedure will be dictated by Dr. Kimo Joya of Cardiology. Note, I was present for the entire procedure and fully and completely deployed the 29 mm Evolut PRO+ transcatheter aortic valve in the correct anatomical position with excellent results confirmed by BUD. MMODL / IJN: [id number] /
[2022-02-17] MEDS: VIT A,C & E-LUTEIN-MINERALS 1 EACH TAB PO SCH (20:46)
[2022-02-17] MEDS: WARFARIN 3 MG TAB PO SCH (20:46)
[2022-02-18 04:03] VITALS: TEMP 97.5
[2022-02-18 07:11] LABS: Basophils # (A) 0.1 k/uL (0-0.2); Basophils % (A) 1 %; Eosinophils # (A) 0.2 k/uL (0-0.7); Eosinophils % (A) 2 %; HCT 41.6 % (34.0-46.0); HGB 13.1 gm/dL (11.4-16.0); Lymphocytes # (A) 1.3 k/uL (1.0-4.8); Lymphocytes % (A) 15 %; MCH 31.8 pg (25.0-35.0); MCHC 31.5 g/dL (31.0-37.0); MCV 100.8 fL (80.0-100.0); Macrocytosis Slight; Mean Platelet Volume 9.1; Monocytes % (A) 11 %; Neutrophils # (A) 6.3 k/uL (1.3-7.7); Neutrophils % (A) 69 %; Platelet Count 146 k/uL (150-450); RBC 4.12 m/uL (3.80-5.40); RDW 14.6 % (11.5-15.5); WBC 9.2 k/uL (3.8-10.6)
[2022-02-18 07:25] LABS: INR 1.1 (<1.2); Prothrombin Time 12.2 sec (9.0-12.0)
[2022-02-18] MEDS ORDERED: PANTOPRAZOLE 40 MG TABLET PO SCH (07:30)
[2022-02-18 07:32] LABS: Albumin 3.3 g/dL (3.5-5.0); Calcium 9.1 mg/dL (8.4-10.2); Potassium 4.3 mmol/L (3.5-5.1); Total Bilirubin 0.9 mg/dL (0.2-1.3); Total Protein 6.2 g/dL (6.3-8.2)
[2022-02-18] MEDS ORDERED: FUROSEMIDE 10 MG/ML 2 ML VIAL IV ONE (08:00)
--- NOTE | 2022-02-18 08:12 | XR ---
EXAMINATION TYPE: XR chest 1V portable DATE OF EXAM: 02/18/2022 COMPARISON: 02/17/2022 HISTORY: Postop TECHNIQUE: Single frontal view of the chest is obtained. FINDINGS: Aortic valve surgery suggested. Diffuse interstitial pattern with areas of subsegmental co nsolidation. Findings suspicious for a 5% left-sided pneumothorax. Patient rotated limiting assessmen t for mediastinal deviation. Atherosclerotic change aorta. IMPRESSION: A persistent interstitial pattern correlate for venous congestion. Improving basilar inf iltrates. However, there appears to be a linear lucency along lateral margin of left lower lobe which could represent a tiny pneumothorax. Repeat chest x-ray recommended to exclude artifact.
[2022-02-18] MEDS ORDERED: bisacodyL 10 MG SUPP RECTAL PRN (09:00)
[2022-02-18] MEDS ORDERED: atenoloL 25 MG TAB PO SCH (09:00)
[2022-02-18] MEDS ORDERED: MAGNESIUM HYDROXIDE 2,400 MG/10 ML CUP PO PRN (09:00)
[2022-02-18] MEDS ORDERED: NON FORMULARY DRUG (Prevagen 1 CAP) PO SCH (09:00)
[2022-02-18] MEDS ORDERED: CHOLECALCIFEROL 25 MCG (1000 IU) TABLET PO SCH (09:00)
[2022-02-18] MEDS ORDERED: CLOPIDOGREL 75 MG TAB PO SCH (09:00)
[2022-02-18] MEDS ORDERED: ATORVASTATIN 40 MG TAB PO SCH (09:00)
[2022-02-18] MEDS ORDERED: CYANOCOBALAMIN 500 MCG TAB PO SCH (09:00)
[2022-02-18] MEDS ORDERED: SODIUM CHLORIDE 5% OPHTH OINT 3.5 GM TUBE BOTH EYES SCH (09:00)
[2022-02-18] MEDS: VIT A,C & E-LUTEIN-MINERALS 1 EACH TAB PO SCH (09:49)
--- NOTE | 2022-02-18 11:17 | CA ---
Transthoracic Echo Report Name: Luly Blanca Age: 86 Gender: F : 1935 Exam Date: 02/18/2022 07:11 Exam Location: [facility] Ht (in): 68 Wt (lb): 167 Ordering Physician: Gay Otto Attending/Referring Phys: Bird Tender Gay Perkins RDCS Procedure CPT: Indications: post TAVR Cardiac Hx: Tavr, Hx of afib Technical Quality: Technically difficult study Contrast 1: Total Dose (mL): Contrast 2: Total Dose (mL): MEASUREMENTS (Male / Female) Normal Values 2D ECHO LV Diastolic Diameter PLAX 2.9 cm 4.2 - 5.9 / 3.9 - 5.3 cm LV Systolic Diameter PLAX 1.6 cm IVS Diastolic Thickness 1.1 cm 0.6 - 1.0 / 0.6 - 0.9 cm LVPW Diastolic Thickness 1.2 cm 0.6 - 1.0 / 0.6 - 0.9 cm LV Relative Wall Thickness 0.8 DOPPLER AV Peak Velocity 246.3 cm/s AV Peak Gradient 24.3 mmHg AV Mean Velocity 198.7 cm/s AV Mean Gradient 17.6 mmHg AV Velocity Time Integral 50.2 cm AI Peak Velocity 226.7 cm/s AI Peak Gradient 20.6 mmHg AI Pressure Half Time 719.3 ms LVOT Peak Velocity 89.8 cm/s LVOT Peak Gradient 3.2 mmHg TR Peak Velocity 168.0 cm/s TR Peak Gradient 11.3 mmHg Right Ventricular Systolic Press 16.3 mmHg FINDINGS Left Ventricle Mildly increased septal wall thickness. Mildly increased posterior wall thickness. Left ventricular ejection fraction is estimated at 55-60 %. Left ventricular cavity size normal. Right Ventricle The right ventricle is normal in size and function. Right Atrium The right atrium is normal in size. Left Atrium The left atrium is normal in size. Mitral Valve Structurally normal mitral valve without significant stenosis or prolapse. There is trace mitral regurgitation. Aortic Valve Normally functioning bioprosthetic aortic valve with a peak gradient 24 mmHg, mean gradient 17 mmHg. There is trace aortic regurgitation. Average taken due to Afib. Tricuspid Valve Structurally normal tricuspid valve without significant stenosis. Pulmonary artery systolic pressure is normal. Trace tricuspid regurgitation. Pulmonic Valve Structurally normal pulmonic valve without significant stenosis. There is no pulmonic regurgitation. Pericardium Normal pericardium without effusion. Aorta Normal aortic root dimension. CONCLUSIONS Technically suboptimal study. Normal LV systolic function. Normally functioning bioprosthetic valve in aortic position. Previewed by: Dr. Bart Graves MD (Electronically Signed) Final Date: 18 February 2022 11:16
--- NOTE | 2022-02-18 11:30 | P.PN ---
Subjective Progress Note Date: 02/18/22 Principal diagnosis: Severe symptomatic aortic valve stenosis. Past medical history significant for persistent permanent atrial fib ablation, diastolic congestive heart failure, v ertigo, osteoarthritis, hard of hearing, gastroesophageal reflux disease, anxiety and is a lifetime nonsmoker. POD #1 percutaneous aortic valve implantation using a 29 mm Core-Valve Evolut- Pro Plus, transesophageal echocardiogram performed by anesthesia, ultrasound- guided access and repair of right femoral artery access site by Perclose closure device, placement of temporary pacemaker wire, aortic root angiography and Pre- TAVR BAV with a 20 mm true balloon. The patient was seen and examined in follow-up today 02/18/2022 at her bedside in the intensive care unit. Currently she is sitting up to the bedside chair, is awake, alert, oriented 3 and is in no acute distress. Denies any complaints of pain or shortness of breath at this time. Bedside transthoracic 2-D echocardiogram is being completed at this time with results unavailable. Oxygen saturation are 94% on room air and she is achieving 1500 mL on her incentive spirometry with encouragement. Bedside telemetry showing atrial fibrillation heart rate 94 BPM. She remains hemodynamically stable and is currently on no inotropic pressor support. Laboratory results this morning show a WBC count 9.2, hemoglobin 13.1, hematocrit 41.6, platelets 146, sodium 137, potassium 4.3, BUN 17, creatinine 0.76, calcium 9.1, ionized calcium 5.0 and magnesium 2.0. Bilateral groin sites are clean, dry, and soft palpate. Objective - Vital Signs Vital signs: Vital Signs Temp 97.5 F L 02/18/22 04:00 Pulse 87 02/18/22 07:00 Resp 16 02/18/22 07:00 BP 115/65 02/18/22 07:00 Pulse Ox 95 02/18/22 07:00 FiO2 Intake & Output 02/17/22 02/18/22 02/18/22 18:59 06:59 18:59 Intake Total 1200 250 Output Total 520 100 Balance 680 150 Weight 76.2 kg 76.1 kg Intake: IV 1050 250 LR 250 250 Oral 150 Output: Urine 520 100 Other: Voiding Method External Catheter Bedside Commode # Voids 1 0 0 ABP, PAP, CO, CI - Last Documented Arterial Blood Pressure 147/58 - Exam CONSTITUTIONAL: Sitting up to the bedside chair in the intensive care unit, appears comfortable, cooperative, no apparent acute distress. HEENT: Neck is supple, no JVD, no lymphadenopathy. RESPIRATORY: Lungs sounds essentially clear throughout, diminished to his bilateral bases, left greater than right. Respirations are symmetrical and nonlabored. Currently on room air with oxygen saturations 94%. Able to achieve 1500 mL on her incentive spirometry. Strong cough. CARDIOVASCULAR: Regular rhythm and rate. S1 and S2 present, negative for S3, gallop or murmur. Palpable peripheral pulses bilaterally, no edema to his bilateral lower extremities. No calf pain or tenderness noted. Knee-high SANTANA hose and sequential compression devices in place to his bilateral lower extremities. GASTROINTESTINAL: Abdomen soft, nontender, nondistended. Active bowel sounds present 4 quadrants. Tolerating diet. Passing flatus. No guarding or rigidity. GENITOURINARY: Continues to void. Urine output 300 mL in the last 8 hours INTEGUMENTARY: Skin is warm and dry with no evidence of clubbing or cyanosis. Bilateral groin sites, clean, dry, and soft palpate. NEUROLOGIC: Cranial nerves II through XII intact. No focal deficits. MUSKULOSKELETAL: Able to move all extremities, strength equal bilaterally, generalized weakness. PSYCHIATRIC: Alert and oriented to person place and time, appropriate affect, intact judgment and insight. - Allied health notes Allied health notes reviewed: nursing - Labs CBC & Chem 7: 02/18/22 06:18 02/18/22 06:18 Labs: Abnormal Lab Results - Last 24 Hours (Table) 02/15/22 02/17/22 02/17/22 Range/Units 10:58 10:27 10:27 MCV 100.7 H (80.0-100.0) fL Plt Count (150-450) k/uL PT 12.7 H (9.0-12.0) sec INR 1.2 H (<1.2) Carbon Dioxide (22-30) mmol/L BUN (7-17) mg/dL Glucose (74-99) mg/dL AST (14-36) U/L Total Protein (6.3-8.2) g/dL Albumin (3.5-5.0) g/dL Crossmatch See Detail 02/17/22 02/18/22 02/18/22 Range/Units 10:27 06:18 06:18 MCV 100.8 H (80.0-100.0) fL Plt Count 146 L (150-450) k/uL PT (9.0-12.0) sec INR (<1.2) Carbon Dioxide 19 L (22-30) mmol/L BUN 21 H (7-17) mg/dL Glucose 115 H (74-99) mg/dL AST 53 H 38 H (14-36) U/L Total Protein 6.2 L 6.2 L (6.3-8.2) g/dL Albumin 3.3 L 3.3 L (3.5-5.0) g/dL Crossmatch 02/18/22 Range/Units 06:18 MCV (80.0-100.0) fL Plt Count (150-450) k/uL PT 12.2 H (9.0-12.0) sec INR (<1.2) Carbon Dioxide (22-30) mmol/L BUN (7-17) mg/dL Glucose (74-99) mg/dL AST (14-36) U/L Total Protein (6.3-8.2) g/dL Albumin (3.5-5.0) g/dL Crossmatch - Imaging and Cardiology Chest x-ray: report reviewed, image reviewed Assessment and Plan Assessment: 1. Severe symptomatic aortic valve stenosis, status post percutaneous aortic valve implantation using a 29 mm Core-Valve Evolut-Pro Plus 2. Permanent atrial fibrillation, on Coumadin for anticoagulation on an outpatient basis 3. Chronic Diastolic congestive heart failure 4. Vertigo 5. Osteoarthritis 6. Gastroesophageal reflux disease 7. Hard of hearing 8. Anxiety 9. Lifetime nonsmoker Plan: 1. Reinforced with the patient the importance to hold both groins when coughing or sneezing. 2. Lasix 20 mg IV 1 now. 3. Continue pain control per current when necessary orders. 4. Discharge planning is in place, anticipate discharge home within the next 24 hours. 5. Continue to optimize medical management with statin, beta manuel, Coumadin and Plavix. We will discontinue her low dose aspirin and she will be discharged home with Plavix and Coumadin. 6. Increase activity as tolerated. Out of bed for all meals. 7. More recommendations to follow based on patient's clinical course. Time with Patient: Greater than 30
--- NOTE | 2022-02-18 14:46 | P.DS ---
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 Severe symptomatic aortic valve stenosis, status post percutaneous aortic valve implantation using a 29 mm Core-Valve Evolut-Pro Plus 2. Permanent atrial fibrillation, on Coumadin for anticoagulation on an outpatient basis 3. Chronic Diastolic congestive heart failure 4. Vertigo 5. Osteoarthritis 6. Gastroesophageal reflux disease 7. Hard of hearing 8. Anxiety 9. Lifetime nonsmoker PRINCIPAL PROCEDURE: 1. Percutaneous aortic valve implantation using a 29 mm Core-Valve Evolute Plus 2. Transesophageal echocardiogram performed by anesthesia 3. Ultrasound-guided access and repair of right femoral artery access site by Perclose closure device 4. Placement of temporary pacemaker wire 5. Aortic root angiography 6. Pre-TAVR BAV with a 20 mm true balloon HISTORY OF PRESENT ILLNESS: This is an 86-year-old female patient who follows on an outpatient basis with visiting physicians for her primary care service and Dr. Gordon for her cardiology care. Recently, the patient has had complaints of progressive shortness of breath with exertion accompanied by occasional chest discomfort. She was subsequently referred to the structural heart clinic for evaluation for transcatheter aortic valve replacement after heart cath eterization and transesophageal echocardiogram were completed. Transesophageal echocardiogram results demonstrated an overall ejection fraction of 55-60%, severe dilatation of her left atrium, moderate mitral valve regurgitation, severe mitral valve annulus calcification, trace to mild tricuspid valve regurgitation, severe aortic valve stenosis with a peak velocity of 4.8 m/s, and a mean gradient of 50 mmHg. The heart catheterization showed normal coronary angiogram. After her workup was completed and STS risk score was calculated along with an incremental risk and the patient was felt that the patient would be a good candidate for transcatheter aortic valve replacement. The usual course of TAVR was discussed in detail with the patient, risks and benefits were reviewed, shared decision making between cardiology, surgery and the patient took place and the patient consented to proceed with the procedure. HOSPITAL COURSE: The patient was brought to the hospital on 02/17/2022, was ta shabana to the extended stay area, prepared in usual fashion and subsequently taken to the cardiac catheterization laboratory where Dr. Joya and Dr. Winslow completed a percutaneous aortic valve implantation using a 29 mm Core-Valve Evolute Plus procedure under general anesthesia, with fluoroscopy and BUD. The valve was deployed under rapid ventricular pacing and proceeded without event. At the end of the procedure hemodynamics were felt to be acceptable and there was mild paravalvular regurgitation with a mean gradient of 6 mmHg. Her oxygen was titrated down, she was tolerating an oral diet, her pain was well- controlled. Follow-up TTE demonstrated a left ventricular ejection fraction estimated at 55-60%, trace mitral valve regurgitation, a normally functioning bioprosthetic aortic valve with a peak gradient of 24 mmHg and a mean gradient of 17 mmHg, trace aortic valve regurgitation, trace tricuspid valve regurgitation and no pericardial effusion. She has received written and verbal instructions regarding her medications, activity restrictions, signs and symptoms requiring physician notification and her follow-up appointments. Plan - Discharge Summary Discharge Rx Participant: No New Discharge Prescriptions: New Clopidogrel [Plavix] 75 mg PO DAILY #30 tab Sennosides-Docusate Sodium [Senokot-S] 2 each PO HS #14 tab Atorvastatin [Lipitor] 40 mg PO DAILY #30 tab Pantoprazole [Protonix] 40 mg PO AC-BRKFST #30 tab Acetaminophen Tab [Tylenol] 650 mg PO Q4HR PRN tab PRN Reason: Fever And/ Or Mild Pain (1-3) Continue Vit C/E/Zn/Coppr/Lutein/Zeaxan [Preservision Areds 2 Softgel] 1 cap PO BID Prevagen 1 cap PO DAILY atenoloL [Tenormin] 25 mg PO DAILY Cyanocobalamin (Vitamin B-12) [Vitamin B-12] 1,000 mcg PO DAILY Warfarin [Coumadin] 3 mg PO DAILY Sodium Chloride 5% Ophth Oint [Artur 128] 1 drop BOTH EYES DAILY Cholecalciferol [Vitamin D3 (25 Mcg = 1000 Iu)] 25 mcg PO DAILY Discontinued Aspirin EC [Ecotrin Low Dose] 162 mg PO DAILY Discharge Medication List Prevagen 1 cap PO DAILY 12/08/20 [History] Vit C/E/Zn/Coppr/Lutein/Zeaxan [Preservision Areds 2 Softgel] 1 cap PO BID 12/08/20 [History] Cholecalciferol [Vitamin D3 (25 Mcg = 1000 Iu)] 25 mcg PO DAILY 11/05/21 [Hi story] Cyanocobalamin (Vitamin B-12) [Vitamin B-12] 1,000 mcg PO DAILY 11/05/21 [History] Sodium Chloride 5% Ophth Oint [Artur 128] 1 drop BOTH EYES DAILY 11/05/21 [History] atenoloL [Tenormin] 25 mg PO DAILY 11/05/21 [History] Warfarin [Coumadin] 3 mg PO DAILY 11/30/21 [History] Acetaminophen Tab [Tylenol] 650 mg PO Q4HR PRN tab 02/18/22 [Rx] Atorvastatin [Lipitor] 40 mg PO DAILY #30 tab 02/18/22 [Rx] Clopidogrel [Plavix] 75 mg PO DAILY #30 tab 02/18/22 [Rx] Pantoprazole [Protonix] 40 mg PO AC-BRKFST #30 tab 02/18/22 [Rx] Sennosides-Docusate Sodium [Senokot-S] 2 each PO HS #14 tab 02/18/22 [Rx] Follow up Appointment(s)/Referral(s): Quan Wilder MD [Primary Care Provider] - As Needed Danilo Alexander MD [STAFF PHYSICIAN] - 02/26/22 3:00 pm (Your appointment 02/26/22 is for 1 week post TAVR groin check. You also have a 30 post TAVR echo at [facility] 04/09/22 at 1 pm. Please go to the TAVR clinic after your echo is completed) Clinic,Structural Heart [NON-STAFF] - 04/09/22 1:30 pm (Please come to valve clinic after 30 day TAVR echo) Ambulatory/Diagnostic Orders: Complete Blood Count w/diff [LAB.AMB] Facility: [facility], Location: Laboratory [facility] Comprehensive Metabolic Panel [LAB.AMB] Facility: [facility], Location: Laboratory [facility] Activity/Diet/Wound Care/Special Instructions: DISCHARGE INSTRUCTIONS: 1. No driving for 1 week, or until physician gives their ok. 2. No lifting, pushing, or pulling more than 5-10 pounds for 1 week. 3. Hold both groins when you cough or sneeze for the next 2 weeks. Bruising is common, but report increased swelling, pain or fever >101F 4. Shower daily. No pool, hot tub, or bathtub for 1 week 5. No powders, lotions, ointments on incisions. 6. No straining, including for bowel movements. Use stool softner if necessary 7. Stairs are not an issue. Go slowly, using handrail and take 1 step at a time. Ambulate several times daily 8. Continue pain control per as needed orders. 9. Take only the medications listed on your discharge form 10. Eat low salt (limited to 2 grams or 2000 milligrams) daily, avoid adding salt, avoid canned/processed foods 11. Take your weight daily in the morning and record, bring with you to your follow up appointments 12. Keep all follow up appointments. You will need a valve clinic appointment at 30 days and 1 year post procedure for follow up 13. You have been referred to and are expected to begin Cardiac Rehab in approximately 4 weeks. 14. You will need antibiotics prior to any dental work, including cleanings, and any surgeries to prevent Endocarditis (bacterial infection in your heart) For any questions or concerns please call your valve coordinators: Gay or Tiago @ Discharge Disposition: HOME SELF-CARE
[2022-02-18 14:48] VITALS: BP 113/63; PULSE 79; RESP 19
[2022-02-18] MEDS: WARFARIN 3 MG TAB PO SCH (14:51)
--- NOTE | 2022-02-18 15:59 | P.PN ---
Subjective Progress Note Date: 02/18/22 86-year-old female patient with multiple medical problems including known histo ry of aortic valve stenosis, atrial fibrillation, chronic CHF with diastolic dysfunction, osteoporosis, GERD and anxiety, who was evaluated at the structural heart clinic. Patient was having symptoms of shortness of breath with exertion with occasional chest discomfort. Echocardiogram revealed severe aortic valve stenosis, and EF of 55-60% and peak across the aortic valve of 4.8 m/s and a mean gradient of 15 mmHg. There was moderate mitral regurgitation. Cardiac catheterization on 12/01/2021 showed normal coronary arteries. Carotid duplex showed no significant carotid stenosis. Pulmonary function test showed FEV1 of 1.6 L or 71% of predicted. Due to her multiple comorbidities and advanced age and frailty patient was offered transcatheter aortic valve replacement which she opted for. On February 17, 2022 patient underwent percutaneous aortic valve implantation, with intraoperative transesophageal echocardiography. Patient is seen in the postoperative period in the intensive care unit, patient is resting comfortably in bed, she is on 2 L of oxygen satting 95%. Chest x-ray showed new left lower lobe infiltrate with small effusion, mild central venous congestion. Postoperative labs have been reviewed showing white blood cell count is 8.4, hemoglobin is 13.2, INR is 1.2, CO2 is 19, BUN is 21 creatinine 0.78. Hemodynamically patient is stable, not in any vasopressors. Patient remains in atrial fibrillation, with a controlled rate. Cefazolin for prophylactic antibiotics. 02/18/2022, the patient extremely well. No specific complaints. The patient's chest x-ray from today showing a component of mild interstitial edema. Nevertheless, the patient is not having any shortness of breath and the patient is currently on room air oxygen. No cardiac arrhythmias. The patient remains in atrial fibrillation. Anticoagulation with warfarin will be restarted. No altered mentation. No focal neurological deficits. No headaches. No change in mental status. The plan is to monitor this patient. Obtain echocardiogram. Possible discharge home today if things remain stable. Objective - Vital Signs Vital signs: Vital Signs Temp 97.5 F L 02/18/22 04:00 Pulse 79 02/18/22 14:00 Resp 19 02/18/22 14:00 BP 113/63 02/18/22 14:00 Pulse Ox 96 02/18/22 14:00 FiO2 Intake & Output 0802/18/22 02/18/22 18:59 06:59 18:59 Intake Total 1200 250 950 Output Total 734 895 0666 Balance 680 150 -375 Weight 76.2 kg 76.1 kg Intake: IV 1050 250 LR 250 250 Intake, IV Titration 50 Amount ceFAZolin 2 gm In Sodium 50 Chloride 0.9% 50 ml @ 100 mls/hr IVPB Q8HR [facility] Rx# :[id number] Oral 150 900 Output: Urine 597 [id number] Other: Voiding Method External Catheter Bedside Commode Bedside Commode # Voids 1 0 0 ABP, PAP, CO, CI - Last Documented Arterial Blood Pressure 147/58 - Exam CONSTITUTIONAL: Sitting up to the bedside chair in the intensive care unit, appe ars comfortable, cooperative, no apparent acute distress. HEENT: Neck is supple, no JVD, no lymphadenopathy. RESPIRATORY: Lungs sounds essentially clear throughout, diminished to his bilateral bases, left greater than right. Respirations are symmetrical and nonlabored. Currently on room air with oxygen saturations 94%. Able to achieve 1500 mL on her incentive spirometry. Strong cough. CARDIOVASCULAR: Regular rhythm and rate. S1 and S2 present, negative for S3, gallop or murmur. Palpable peripheral pulses bilaterally, no edema to his bilateral lower extremities. No calf pain or tenderness noted. Knee-high SANTANA hose and sequential compression devices in place to his bilateral lower e xtremities. GASTROINTESTINAL: Abdomen soft, nontender, nondistended. Active bowel sounds present 4 quadrants. Tolerating diet. Passing flatus. No guarding or rigidity. GENITOURINARY: Continues to void. Urine output 300 mL in the last 8 hours INTEGUMENTARY: Skin is warm and dry with no evidence of clubbing or cyanosis. Bilateral groin sites, clean, dry, and soft palpate. NEUROLOGIC: Cranial nerves II through XII intact. No focal deficits. MUSKULOSKELETAL: Able to move all extremities, strength equal bilaterally, generalized weakness. PSYCHIATRIC: Alert and oriented to person place and time, appropriate affect, intact judgment and insight. - Labs CBC & Chem 7: 02/18/22 06:18 02/18/22 06:18 Labs: Abnormal Lab Results - Last 24 Hours (Table) 02/15/22 02/18/22 02/18/22 Range/Units 10:58 06:18 06:18 MCV 100.8 H (80.0-100.0) fL Plt Count 146 L (150-450) k/uL PT (9.0-12.0) sec AST 38 H (14-36) U/L Total Protein 6.2 L (6.3-8.2) g/dL Albumin 3.3 L (3.5-5.0) g/dL Crossmatch See Detail 02/18/22 Range/Units 06:18 MCV (80.0-100.0) fL Plt Count (150-450) k/uL PT 12.2 H (9.0-12.0) sec AST (14-36) U/L Total Protein (6.3-8.2) g/dL Albumin (3.5-5.0) g/dL Crossmatch Assessment and Plan Plan: Assessment: #1. Severe aortic valve stenosis, status post transcatheter aortic valve replacement, placement of temporary pacemaker wire, and transesophageal echocardiogram on 02/17/2022, the patient is postop day #1. The patient is doing extremely well. There may be a mild pulmonary vascular congestion and the patient will be given a dose of Lasix 20 mg a push 1. No hypoxemia. No signs of respiratory distress. #2. Symptoms of exertional dyspnea and chest pain related to aortic valve stenosis #3. History of atrial fibrillation on Coumadin, controlled #4. Chronic CHF with diastolic dysfunction #5. Osteoarthritis #6. GERD/reflux #7. Anxiety Plan: Chest x-ray was noted. Lasix was given. Antipronation was restarted warfarin Home medications and resume Possible home today
[2022-02-18] MEDS ORDERED: SENNOSIDES-DOCUSATE SODIUM 1 EACH TAB PO SCH (21:00)
== END 2022-02-18 15:05 | disposition home or self-care (01) | DRG 267 ==
LOC: 2ORMAIN 05:45 → 2SICU 09:44
PROVIDERS: ADMIT Internal Medicine; ATTEND Internal Medicine
PROC: X2RF332 Replacement of Aortic Valve using Zooplastic Tissue, Rapid Deployment Technique, Percutaneous Approach, New Technology Group 2 (ICD-10-PCS; principal; 2022-02-17 08:00)
DX: I08.3 Combined rheumatic disorders of mitral, aortic and tricuspid valves (principal); I48.21 Permanent atrial fibrillation; I50.32 Chronic diastolic (congestive) heart failure; R42 Dizziness and giddiness; M19.90 Unspecified osteoarthritis, unspecified site; H91.90 Unspecified hearing loss, unspecified ear; K21.9 Gastro-esophageal reflux disease without esophagitis; F41.9 Anxiety disorder, unspecified; I25.10 Atherosclerotic heart disease of native coronary artery without angina pectoris; M47.812 Spondylosis without myelopathy or radiculopathy, cervical region; M81.0 Age-related osteoporosis without current pathological fracture; R54 Age-related physical debility; Z00.6 Encounter for examination for normal comparison and control in clinical research program; Z79.01 Long term (current) use of anticoagulants; Z90.49 Acquired absence of other specified parts of digestive tract; Z98.61 Coronary angioplasty status; Z90.710 Acquired absence of both cervix and uterus; Z98.41 Cataract extraction status, right eye; Z98.42 Cataract extraction status, left eye; Z90.89 Acquired absence of other organs; Z87.891 Personal history of nicotine dependence; Z82.49 Family history of ischemic heart disease and other diseases of the circulatory system; Z79.899 Other long term (current) drug therapy; Z79.02 Long term (current) use of antithrombotics/antiplatelets; Z88.0 Allergy status to penicillin; Z88.1 Allergy status to other antibiotic agents; Z88.8 Allergy status to other drugs, medicaments and biological substances
CPT/HCPCS: 33210; 33361; 71045; 80053; 82330; 83735; 85025; 85610; 85730; 86850; 86900; 86901; 86920; 93306; 93312; 93320; 93325

== ENCOUNTER → 2022-04-09 | Outpatient (CLI) | payer MEDICARE ==
[2022-04-09 18:07] LABS: Basophils # (A) 0.07 X 10*3/uL (0.00-0.10); Basophils % (A) 0.9 %; Eosinophils # (A) 0.42 X 10*3/uL (0.04-0.35); Eosinophils % (A) 5.4 %; HCT 43.8 % (37.2-46.3); HGB 14.4 g/dL (12.0-15.0); Immature Grans, Automated 0.3 %; Lymphocytes # (A) 2.02 X 10*3/uL (0.90-5.00); Lymphocytes % (A) 25.9 %; MCH 31.2 pg (27.0-32.0); MCHC 32.9 g/dL (32.0-37.0); Mean Platelet Volume 11.7 fL (9.5-12.2); Monocytes # (A) 1.07 X 10*3/uL (0.20-1.00); Monocytes % (A) 13.7 %; NRBC Per 100 WBC 0 /100 WBCS (0.0-0.0); Neutrophils # (A) 4.19 X 10*3/uL (1.80-7.70); Neutrophils % (A) 53.8 %; Platelet Count 202 X 10*3/uL (140-440); RBC 4.61 X 10*6/uL (4.10-5.20); RDW 14.9 % (11.5-14.5); WBC 7.79 X 10*3/uL (4.50-10.00)
[2022-04-09 20:43] LABS: African American GFR (CKD) 42.1 (60.0-200.0); Anion Gap 13.1 mmol/L (10.00-18.00); BUN/Creat Ratio 15.77 Ratio (12.00-20.00); Blood Urea Nitrogen 20.5 mg/dL (9.0-27.0); Calcium 9.7 mg/dL (8.7-10.3); Carbon Dioxide 26.9 mmol/L (20.0-27.5); Non-African American GFR(CKD) 36.3 (60.0-200.0); Potassium 4.9 mmol/L (3.5-5.5)
== END | disposition home or self-care (01) ==
LOC: LABWHC1 12:08
PROVIDERS: ATTEND Thoracic Surgery (Cardiothoracic Vascular Surgery)
DX: I35.1 Nonrheumatic aortic (valve) insufficiency (principal)
CPT/HCPCS: 36415; 80048; 85025

== ENCOUNTER 2022-10-12 12:32 | Day surgery (SDC) | payer MEDICARE ==
[2022-10-12 13:43] LABS: INR 1.1 (<1.2); Prothrombin Time 11.6 sec (9.0-12.0)
[2022-10-12 13:48] VITALS: RESP 16; TEMP 97.4
[2022-10-12 14:42] VITALS: BP 129/82; PULSE 113
--- NOTE | 2022-10-12 14:54 | US ---
ULTRASOUND GUIDED FNA THYROID BIOPSY: CLINICAL HISTORY: Left thyroid nodule FINDINGS: The procedure was explained to the patient. The risks, complications, benefits and alternatives were discussed and any questions were answered. Informed consent was obtained. Patient was placed supin e on the ultrasound table and prepped and draped in the usual sterile fashion. Utilizing a 25 gauge needle, five passes were made into the requested left thyroid nodule. Patient was stable throughout the procedure. Pathology is pending. All elements of maximal barrier technique were utilized. IMPRESSION: 1. Successful ultrasound guided FNA thyroid biopsy.
== END 2022-10-12 14:30 | disposition home or self-care (01) ==
LOC: RADPROMAIN 12:32
PROVIDERS: ATTEND Otolaryngology
DX: E04.1 Nontoxic single thyroid nodule (principal)
CPT/HCPCS: 10005; 36415; 85610; 88173; 88305